=== PATIENT | female | born 1975 | race Caucasian/White ===

== ENCOUNTER 2017-01-28 08:26 | Emergency (ER) | payer MEDICAID ==
[~2017-01-28] VITALS: Ht 162.6 cm; Wt 104.3 kg
[~2017-01-28 08:26] MED LIST: AC500T PO; ACET15SO4 LEFT EAR; DCS100C PO; DIPH1TAB25 PO; DIPH50CA33 PO; HYDR-2890 PO; HYDR-34 PO; HYDR-623 PO; HYDR-757 PO; HYDR1TAB PO; IBP600T1 PO; IBP800T PO; LEVO88TA26; LOPE2CAP PO; LVT.025T PO; MTF500T PO; NITR-65; ONDA-42 PO; OXYC-12 PO; PREN-115 PO; PRM25T PO
--- OUTSIDE RECORDS SUMMARY | 2017-01-28 08:32 | XMS REPORT ---
Author Author LEWIS NAILS eClinicalWorks Address Unknown Phone Unavailable Care Team Providers Care Vegetable Grader Name Role Phone LEWIS NAILS CP Unavailable Allergies, Adverse Reactions, Alerts Substance Reaction Event Type N.K.D.A. Info Not Available Non Drug Allergy Problems Problem Type Condition Code Onset Dates Condition Status Assessment Acute bronchitis, unspecified organism J20.9 Active Medications Medication Code System Code Instructions Start Date End Date Status Dosage PredniSONE [facility] [address]-39 20 MG Orally Once a day Oct 01, 2016 Oct 06, 2016 2 tablet Azithromycin [facility] [address]-79 250 MG Orally Once a day Oct 01, 2016 Oct 06, 2016 2 tablets on the first day, then 1 tablet daily for 4 days Procedures Procedure Coding System Code Date Office Visit, Est Pt., Level 3 CPT-4 05437 Oct 01, 2016 Vital Signs Date/Time: Oct 01, 2016 Cardiac Monitoring Heart Rate 88 bpm Weight 218.4 lbs Height 64 in BMI 37.48 Index Blood Pressure Diastolic 76 mmHg Blood Pressure Systolic 110 mmHg Results No Known Results Summary Purpose eClinicalWorks Submission
[2017-01-28] MEDS ORDERED: CIPR-226 PO (08:47)
[2017-01-28 09:32] LABS: BILIRUBIN,URINE NEGATIVE (NEGATIVE); KETONES,URINE NEGATIVE (NEGATIVE); LEUKOCYTE ESTERASE ,URINE NEGATIVE (NEGATIVE); NITRITE,URINE NEGATIVE (NEGATIVE); PH,URINE 7 (5-9); PROTEIN,URINE NEGATIVE (NEGATIVE); UROBILINOGEN,URINE NORMAL (NORMAL)
[2017-01-28 09:40] LABS: WBC,URINE RARE /HPF
--- NOTE | 2017-01-28 10:12 | ED General ---
General Chief Complaint: Back Problems Stated Complaint: LEFT SIDED LOWER BACK PAIN Nursing Triage Note: c/o left lower back/flank pain. Onset 2 days ago. Pt was seen at [facility] walk-in on and prescribed Cipro for UTI. The dysuria symptoms have improved. Nursing Sepsis Screen: No Definite Risk Source of Information: Patient Exam Limitations: No Limitations History of Present Illness Time Seen by Provider: 10:09 Initial Comments With complaints of left lower back pain and flank pain. This began 2 days ago. She was seen at [facility] walk-in on Wednesday. She was given a prescription for Cipro. She reports that her dysuria has improved but she continues to have back pain. The pain that begins at about the level of the left costovertebral angle and radiates downward. It does increase with twisting and turning. She has no past history of back injury or pain. Her mother has had kidney stone. Timing/Duration: 2-3 Days Allergies and Home Medications Allergies Coded Allergies: iodine (Unverified Allergy, Severe, ANAPHYLAXIS, 09/02/10) SWELLING OF THROAT Home Medications Ciprofloxacin HCl 250 Mg Tablet 250 MG PO BID (Reported) Diphenhydramine Hcl 50 Mg Tablet 50 MG PO HS (Reported) Constitutional: see HPI EENTM: no symptoms reported Respiratory: no symptoms reported Cardiovascular: no symptoms reported Gastrointestinal: no symptoms reported Genitourinary: dysuria Musculoskeletal: back pain Skin: no symptoms reported Psychiatric/Neurological: No Symptoms Reported Hematologic/Lymphatic: No Symptoms Reported Immunological/Allergic: no symptoms reported Past Kmeevct-Oyyzyd-Qapjfj Hx Patient Social History Alcohol Use: Denies Use Recreational Drug Use: No Smoking Status: Never a Smoker Recent Foreign Travel: No Contact w/Someone Who Travel: No Recent Infectious Disease Expo: No Recent Hopitalizations: Yes (CHILD , APPY) Immunizations Up To Date Tetanus Booster (TDap): Less than 5yrs Date of Influenza Vaccine: Aug 22, 2013 Surgeries HX Surgeries: Yes Respiratory Hx Respiratory Disorders: No Cardiovascular Hx Cardiac Disorders: No Neurological Hx Neurological Disorders: No Reproductive System Hx Reproductive Disorders: Yes (ANEMIA FROM ABNORMAL UTERINE BLEEDING) Sexually Transmitted Disease: No HIV/AIDS: No Female Reproductive Disorders: Menstrual Problems Genitourinary Hx Genitourinary Disorders: No Genitourinary Disorders: Bladder Infection Gastrointestinal Hx Gastrointestinal Disorders: No Musculoskeletal Hx Musculoskeletal Disorders: No Endocrine Hx Endocrine Disorders: Yes Endocrine Disorders: Hypothyroidsim HEENT HX ENT Disorders: Yes (WEARS GLASSES) Loss of Vision: Bilateral Hearing Impairment: Denies Cancer Hx Cancer: No Psychosocial Hx Psychiatric Problems: No Integumentary HX Skin/Integumentary Disorder: Yes (RIGHT ARM) Skin/Integumentary Disorders: Eczema, Psoriasis Blood Transfusions Hx Blood Disorders: No Adverse Reaction to a Blood Tr: No (HAS HAD BLOOD TRANSFUSION WITH NO PROBLEMS) Family Medical History Significant Family History: Hypertension Family Medial History: Cataracts 19 MOTHER Congenital heart disease G8 SISTER (BOTH SISTERS HAVE MIRTAL VALVE PROLAPSE) Hypertension 19 FATHER Thyroid disease 19 MOTHER No Family History of: Coronary thrombosis Physical Exam Vital Signs Vital Sign - Last 12Hours 01/28/17 08:38 Temp 95.3 Pulse 83 Resp 16 B/P 177/110 Pulse Ox 98 O2 Delivery Room Air Capillary Refill : Less Than 3 Seconds General Appearance: Mild Distress Eyes: Bilateral Eye Normal Inspection HEENT: Normal ENT Inspection Neck: Full Range of Motion Normal Inspection Non Tender Supple Carotid Bruit Respiratory: Chest Non Tender Lungs Clear Normal Breath Sounds No Accessory Muscle Use No Respiratory Distress Cardiovascular: Regular Rate, Rhythm No Edema No Gallop No JVD No Murmur Normal Peripheral Pulses Gastrointestinal: Normal Bowel Sounds No Organomegaly Back: CVA Tenderness (L) Neurologic/Psychiatric: Alert Oriented x3 No Motor/Sensory Deficits Normal Mood/Affect Skin: Normal Color Warm/Dry Lymphatic: No Adenopathy Progress/Results/Core Measures Results/Orders Lab Results Laboratory Tests Test 01/28/17 08:55 Range/Units Urine Bacteria TRACE /HPF Urine Bilirubin NEGATIVE NEGATIVE Urine Casts NONE /LPF Urine Clarity CLEAR Urine Color YELLOW Urine Crystals NONE /LPF Urine Culture Indicated NO Urine Glucose (UA) NEGATIVE NEGATIVE Urine Ketones NEGATIVE NEGATIVE Urine Leukocyte Esterase NEGATIVE NEGATIVE Urine Mucus NEGATIVE /LPF Urine Nitrite NEGATIVE NEGATIVE Urine Protein NEGATIVE NEGATIVE Urine RBC RARE /HPF Urine RBC (Auto) NEGATIVE NEGATIVE Urine Specific [place] 1.010 L 1.016-1.022 Urine Squamous Epithelial Cells 2-5 /HPF Urine Urobilinogen NORMAL NORMAL MG/DL Urine WBC RARE /HPF Urine pH 7 5-9 My Orders Orders-SARAH RAI MD Ua Culture If Indicated (01/28/17 09:26) Ct Abd/Pelvis Wo(Kidney Stone) (01/28/17 10:08) Vital Signs/I&O Vital Sign - Last 12Hours 01/28/17 08:38 Temp 95.3 Pulse 83 Resp 16 B/P 177/110 Pulse Ox 98 O2 Delivery Room Air Blood Pressure Mean: 132 Departure Impression Impression: Primary Impression: right flank pain/acute UTI Disposition: HOME, SELF-CARE Condition: Stable/Unchanged Departure-Patient Inst. Decision time for Depature: 11:04 Referrals: NO,LOCAL PHYSICIAN (PCP) Primary Care Physician Add. Discharge Instructions: All discharge instructions reviewed with patient and/or family. Voiced understanding. Finish your antibiotics Try heat to the area Gentle stretching Pyridium as directed Scripts Phenazopyridine HCl (Pyridium)200 Mg Tablet1 Tab PO 3 times a day #10 TAB Prov:SARAH RAI MD 01/28/17 SARAH RAI MD Jan 28, 2017 10:12
--- NOTE | 2017-01-28 10:39 | Diagnostic Imaging Report ---
PROCEDURE: CT urinary tract, rule out kidney stone. TECHNIQUE: Multiple contiguous axial images were obtained through the abdomen and pelvis without the use of intravenous contrast. INDICATION: Left-sided lower back pain x2 days. History of urinary calculi. History of UTI. COMPARISON: 09/02/2010. FINDINGS: Included views of the lung bases are clear. CT abdomen: No renal or ureteral calculi are identified on either side. Additionally, there is no hydroureteronephrosis or other evidence of obstruction. No focal renal mass-type lesions are identified. Liver has a hypodense appearance consistent with underlying hepatic steatosis. Otherwise, the liver, spleen, pancreas, and adrenal glands have an unremarkable noncontrast CT appearance. Small bowel loops are nondistended. Normal appendix cannot be adequately identified, but there is no pericecal inflammation. There is no loculated fluid collection, free fluid, or free air within the abdomen. No abnormal mesenteric or retroperitoneal adenopathy is seen. Bony structures show no acute abnormalities. CT pelvis: Urinary bladder is unopacified. No calculi are seen within the urinary bladder. There is no loculated fluid collection, free fluid, or free air. No abnormal lymph nodes are seen. Bony structures show no acute abnormalities. IMPRESSION: 1. No renal or ureteral calculi or evidence of obstruction on either side. 2. Hepatic steatosis. Dictated by: Dictated on workstation # [id number]
[2017-01-28] MEDS ORDERED: PHEN-640 PO (11:06)
[2017-01-28 11:24] VITALS: BP 162/90
== END 2017-01-28 11:24 | disposition home or self-care (01) ==
LOC: EDUNIT# 08:26 → ER 08:28
DX: N39.0 Urinary tract infection, site not specified (principal); K76.0 Fatty (change of) liver, not elsewhere classified
CPT/HCPCS: 74176; 81000; 99282

== ENCOUNTER → 2017-03-15 | Outpatient (CLI) | payer MEDICAID ==
[~2017-03-15] MED LIST changes: +CIPR-226 PO; +PHEN-640 PO
--- NOTE | 2017-03-15 09:09 | Diagnostic Imaging Report ---
Bilateral diagnostic mammogram. CAD is utilized. The current study was also evaluated with a Computer Aided Detection (CAD) system. INDICATION: Bilateral breast lumps. No prior studies are available for comparison. Findings: The breasts are composed of scattered fibroglandular densities. There is a 1.3 cm lobulated mass at the medial aspect of the right breast corresponding to one of the palpable areas on the right side. There is no other mass, suspicious calcification or architectural distortion seen. Impression: There is a nonspecific lobulated mass measuring 1.3 CM in the medial aspect of the right breast, no other lesions identified. Ultrasound evaluation pending. BI-RADS 0. ACR BI-RADS Category 0: Incomplete. (Needs additional imaging evaluation). Result letter will be mailed to the patient. Note: At least 10% of breast cancer is not imaged by mammography. Dictated by: Dictated on workstation # [id number]
--- NOTE | 2017-03-15 10:16 | Diagnostic Imaging Report ---
EXAMINATION: Bilateral breast ultrasound. INDICATION: Palpable lumps in the left breast at the 9 o'clock zone and in the right breast at the 2, 3, and 4 o'clock zones. FINDINGS: In the right breast at 2 o'clock 7 cm from the nipple, there is a 0.6 x 0.3 x 0.8 cm hypoechoic circumscribed lesion that appears to be within the skin with no internal vascularity. It is probably a skin lesion such as a sebaceous cyst. Other palpable lesions in the right breast at the 3 and 4 o'clock zones were scanned with no underlying abnormality. Also, a palpable area in the left breast 9 o'clock zone was evaluated with no underlying abnormality. IMPRESSION: 1. At the 2 o'clock zone 7 cm from the nipple, there is a skin-based benign-appearing 8 mm hypoechoic lesion which may relate to a sebaceous cyst. Clinical followup is recommended. 2. Other palpable areas in the right breast at the 3 and 4 o'clock zones and in the left breast at the 9 o'clock zone are not associated with underlying abnormality. Clinical followup is recommended. ACR BI-RADS Category 1: Negative. Dictated by: Dictated on workstation # [id number]
== END ==
LOC: RAD 08:12
PROVIDERS: ATTEND Nurse Practitioner Family
DX: N63 Unspecified lump in breast (principal)
CPT/HCPCS: 76642; 77066

== ENCOUNTER 2017-10-14 11:30 | Observation (INO) | payer MEDICAID ==
[~2017-10-14] VITALS: Ht 162.6 cm; Wt 101.2 kg
[2017-10-14] MEDS ORDERED: LACTATED RINGERS 1,000 ML IV ONE (11:32)
[2017-10-14] MEDS ORDERED: ONDANSETRON 4 MG/2 ML (SDV) Z0FRAN IVP ONE (11:45)
[2017-10-14] MEDS ORDERED: PANTOPRAZOLE 40 MG/10 ML (PROTONIX) VIAL IV ONE (11:45)
[2017-10-14] MEDS ORDERED: HYOSCYAMINE 0.125 MG (LEVSIN) TAB SL ONE (11:45)
[2017-10-14 12:00] LABS: BASOPHILS % (AUTO) 0 % (0-10); EOSINOPHILS # (AUTO) 0.1 10^3/uL (0.0-0.3); EOSINOPHILS % (AUTO) 2 % (0-10); LYMPHOCYTES # (AUTO) 1.4 X 10^3 (1.0-4.0); LYMPHOCYTES % (AUTO) 17 % (12-44); MEAN CORPUSCULAR HEMOGLOBIN 30 PG (25-34); MEAN CORPUSCULAR HGB CONC 35 G/DL (32-36); MEAN CORPUSCULAR VOLUME 88 FL (80-99); MEAN PLATELET VOLUME 8.8 FL (7.4-10.4); MONOCYTES # (AUTO) 0.4 X 10^3 (0.0-1.0); MONOCYTES % (AUTO) 5 % (0-12); NEUTROPHILS # (AUTO) 6.3 X 10^3 (1.8-7.8); NEUTROPHILS % (AUTO) 76 % (42-75); PLATELET COUNT 337 10^3/uL (130-400); RED BLOOD COUNT 4.18 10^6/uL (4.35-5.85); RED CELL DISTRIBUTION WIDTH 12.3 % (10.0-14.5); WHITE BLOOD COUNT 8.3 10^3/uL (4.3-11.0)
[2017-10-14] MEDS ORDERED: NS 100 ML (IVPB) BAG IV ONE (12:30)
[2017-10-14] MEDS ORDERED: IOHEXOL 350 MG/ML 100 ML (OMNIPAQUE 350) VIAL IV ONE (12:30)
[2017-10-14 12:36] LABS: ALANINE AMINOTRANSFERASE 34 U/L (0-55); ALBUMIN 4.3 GM/DL (3.2-4.5); AMYLASE 183 U/L (25-125); ANION GAP 11 MMOL/L (5-14); ASPARTATE AMINO TRANSFERASE 49 U/L (5-34); BILIRUBIN,TOTAL 0.7 MG/DL (0.1-1.0); BLOOD UREA NITROGEN 6 MG/DL (7-18); BUN/CREATININE RATIO 7; CALCIUM 9.2 MG/DL (8.5-10.1); CARBON DIOXIDE 23 MMOL/L (21-32); CHLORIDE 107 MMOL/L (98-107); CREATININE SERUM 0.81 MG/DL (0.60-1.30); GFR ESTIMATED > 60; GLUCOSE 98 MG/DL (70-105); LIPASE 674 U/L (8-78); MAGNESIUM 1.9 MG/DL (1.8-2.4); POTASSIUM 3.7 MMOL/L (3.6-5.0); SODIUM 141 MMOL/L (135-145); TOTAL PROTEIN 7.3 GM/DL (6.4-8.2)
[2017-10-14 12:55] LABS: BILIRUBIN,URINE NEGATIVE (NEGATIVE); KETONES,URINE NEGATIVE (NEGATIVE); LEUKOCYTE ESTERASE ,URINE NEGATIVE (NEGATIVE); NITRITE,URINE NEGATIVE (NEGATIVE); PH,URINE 8 (5-9); PROTEIN,URINE NEGATIVE (NEGATIVE); UROBILINOGEN,URINE NORMAL (NORMAL)
--- NOTE | 2017-10-14 12:58 | Diagnostic Imaging Report ---
EXAMINATION: CT abdomen and pelvis without contrast dated 10/14/2017. TECHNIQUE: Multiple contiguous axial images were obtained through the abdomen and pelvis without the use of intravenous contrast. INDICATION: Epigastric pain, nausea, and vomiting for two days; shortness of air; increasing pain today. COMPARISON: Comparison made to 01/28/2017. FINDINGS: The nonopacified liver, spleen, and adrenal glands are unremarkable. There is evidence of previous cholecystectomy. Question mild fat stranding about the pancreatic head is noted which could be due to early findings of pancreatitis; correlate with laboratory values. Common duct is dilated, more so than on previous imaging. On prior CT, this was approximately 1 cm in thickness. This measures almost 1.5 cm today. Mild adjacent fat stranding noted. A distal obstructive process is not appreciated on this examination. There is no adjacent free air or free fluid. No lymphadenopathy is appreciated. Within the remaining abdomen and pelvis, the kidneys are unremarkable. No ureteral stone seen on either side. There are several slightly dilated small bowel loops in the left upper abdomen which appear nonspecific in nature. There is no free fluid in the pelvis. There is no inflammatory change about the visualized bowel loops. A small anterior abdominal wall hernia is noted which contains fat only. Osseous structures are unremarkable. The lung bases appear clear. IMPRESSION: 1. Mild fat stranding about the pancreatic head, suspicious for pancreatitis; correlate with symptoms and laboratory values. No adjacent fluid collections appreciated. 2. Common duct dilatation which has worsened since previous examination, and although some of this could be due to postoperative cholecystectomy changes, given the adjacent fat stranding at the pancreatic head, a distal obstructive process cannot be excluded on this examination and further imaging could further characterize as clinically warranted. Other incidental findings as discussed above. 3. Slightly prominent small bowel loops in the left upper quadrant. This is nonspecific. It could be due to a focal ileus versus a very early partial obstructive process, felt to be less likely but clinical followup is recommended. A focal enteritis could cause a similar appearance as well. Dictated by: Dictated on workstation # [id number]
[2017-10-14 13:08] LABS: SQUAMOUS EPITHELIAL CELL,UR 0-2 /HPF
--- NOTE | 2017-10-14 13:08 | Diagnostic Imaging Report ---
EXAM: Acute abdominal series at 12:57 p.m. INDICATION: Epigastric pain FINDINGS: The accompanying PA chest shows the heart size to be within normal limits. The lungs are clear. There is no is evidence for pneumonia or for a pleural effusion. There is no sign of a pneumoperitoneum either. Supine and erect views of the abdomen were obtained. There is a fair amount of gas in both the large and small bowel. This appearance is nonspecific. The amount of bowel gas has increased since the prior CT abdomen/pelvis exam of 01/28/2017. There is no clear evidence for a bowel obstruction. There is no mass or organomegaly appreciated. The osseous structures are intact. IMPRESSION: The bowel gas pattern is nonspecific. There is no acute abnormality identified. Dictated by: Dictated on workstation # [id number]
[2017-10-14] MEDS ORDERED: fentaNYL INJECTION 100 MCG/2 ML AMP IVP STA (13:29)
[2017-10-14] MEDS ORDERED: CATHETER FLUSH 10 ML SYR IV PRN (15:15)
[2017-10-14] MEDS ORDERED: ONDANSETRON 4 MG/2 ML (SDV) Z0FRAN IV PRN (15:15)
--- OUTSIDE RECORDS SUMMARY | 2017-10-14 15:16 | XMS REPORT ---
Author Author LEWIS NAILS eClinicalWorks Address Unknown Phone Unavailable Care Team Providers Care Drying Oven Tender Name Role Phone LEWIS NAILS CP Unavailable Allergies, Adverse Reactions, Alerts Substance Reaction Event Type N.K.D.A. Info Not Available Non Drug Allergy Problems Problem Type Condition Code Onset Dates Condition Status Assessment Acute bronchitis, unspecified organism J20.9 Active Medications Medication Code System Code Instructions Start Date End Date Status Dosage PredniSONE [facility] [address]-19 20 MG Orally Once a day Oct 01, 2016 Oct 06, 2016 2 tablet Azithromycin [facility] [address]-43 250 MG Orally Once a day Oct 01, 2016 Oct 06, 2016 2 tablets on the first day, then 1 tablet daily for 4 days Procedures Procedure Coding System Code Date Office Visit, Est Pt., Level 3 CPT-4 14225 Oct 01, 2016 Vital Signs Date/Time: Oct 01, 2016 Cardiac Monitoring Heart Rate 88 bpm Weight 218.4 lbs Height 64 in BMI 37.48 Index Blood Pressure Diastolic 76 mmHg Blood Pressure Systolic 110 mmHg Results No Known Results Summary Purpose eClinicalWorks Submission
--- OUTSIDE RECORDS SUMMARY | 2017-10-14 15:16 | XMS REPORT ---
Author Author JOLLY HENLEY Organization [facility] Address [address] [place] [address] Care Team Providers Care Food Production Manager Name Role Phone JOLLY HENLEY Unavailable PROBLEMS Type Condition ICD9-CM Code [id number] Code Onset Dates Condition Status SNOMED Code Problem Chronic tension-type headache, intractable G44.221 Active 898429544 Problem Restless leg syndrome G25.81 Active 11685209 Problem Screening cholesterol level Z13.220 Active 390692856 ALLERGIES No Known Allergies SOCIAL HISTORY Never Assessed PLAN OF CARE Activity Details Follow Up prn Reason: VITAL SIGNS Height 64 in 2017-01-26 Weight 235.6 lbs 2017-01-26 Temperature 97.1 degrees Fahrenheit 2017-01-26 Heart Rate 80 bpm 2017-01-26 Respiratory Rate 20 2017-01-26 BMI 40.44 kg/m2 2017-01-26 Blood pressure systolic 110 mmHg 2017-01-26 Blood pressure diastolic 70 mmHg 2017-01-26 MEDICATIONS Medication Instructions Dosage Frequency Start Date End Date Duration Status Benadryl Active Cipro 250 MG Orally every 12 hrs 1 tablet 12h Jan, Jan, 5 days Active RESULTS Name Result Date Reference Range UA LONG DIP (IN HOUSE) 2017-01-26 Lot # [id number] Exp date 2017-12-22 Clarity clear Color orange Odor noneq GLU trace NELLIE 1+ KET trace SG >-1.030 BLO negative pH 5.0 Protein 1+ URO 2.0 NIT positive REYNA negative Lot # [id number] Exp date 2017-12 CULTURE, URINE 2017-01-26 Urine Culture, Routine Final report Result 1 No growth PROCEDURES Procedure Date Ordered Result Body Site URINALYSIS, AUTO, W/O SCOPE January 26, 2017 URINE CULTURE/COLONY COUNT January 26, 2017 IMMUNIZATIONS No Known Immunizations MEDICAL (GENERAL) HISTORY Type Description Date Surgical History section Surgical History cholecystectomy 2009 Surgical History hysterectomy 2014 Surgical History carpal tunnel release 2016 Surgical History appendectomy Hospitalization History Surgery(s)/Childbirth(s) only
--- OUTSIDE RECORDS SUMMARY | 2017-10-14 15:16 | XMS REPORT ---
Author Author CAMERON JOSE Organization [facility] Address [address] [place] [address] Care Team Providers Care Publishing Editor Name Role Phone RED BARNESE Unavailable PROBLEMS Type Condition ICD9-CM Code JRS06-JX Code Onset Dates Condition Status SNOMED Code Problem Screening cholesterol level Z13.220 Active 316805977 Problem Acquired hypothyroidism E03.9 Active 023604042 Problem Arthritis M19.90 Active 2771240 Problem Chronic tension-type headache, intractable G44.221 Active 363370931 Problem Restless leg syndrome G25.81 Active 24154820 Problem Migraine with aura and without status migrainosus, not intractable G43.109 Active 7640378 Problem Mixed hyperlipidemia E78.2 Active 153581809 ALLERGIES Substance Reaction Event Type Date Status Iodine anaphylaxis Drug Allergy March, Active SOCIAL HISTORY Never Assessed PLAN OF CARE Activity Details Follow Up 2 Weeks Reason:Headaches VITAL SIGNS Height 64 in 2017-03-24 Weight 230 lbs 2017-03-24 Temperature 98.3 degrees Fahrenheit 2017-03-24 Heart Rate 78 bpm 2017-03-24 Respiratory Rate 18 2017-03-24 BMI 39.48 kg/m2 2017-03-24 Blood pressure systolic 106 mmHg 2017-03-24 Blood pressure diastolic 70 mmHg 2017-03-24 MEDICATIONS Medication Instructions Dosage Frequency Start Date End Date Duration Status Benadryl Active Topamax 25 MG Orally Once a day for 7 days then Twice a Day 1 tablet March, 30 day(s) Active Requip 2 MG Orally Once a day 1 tablet 1 to 3 hours before bedtime 24h March, 30 day(s) Active RESULTS No Results PROCEDURES Procedure Date Ordered Result Body Site LAB NOT BILLED BY [facility] March 24, 2017 VENIPUNCT, ROUTINE* March 24, 2017 IMMUNIZATIONS No Known Immunizations MEDICAL (GENERAL) HISTORY Type Description Date Medical History hyperlipidemia Medical History RLS Medical History Migraines Surgical History section Surgical History cholecystectomy 2010 Surgical History hysterectomy 2015 Surgical History carpal tunnel release 2016 Surgical History appendectomy Hospitalization History Surgery(s)/Childbirth(s) only
[2017-10-14] MEDS: D5 1/2 NS W/KCL 20 MEQ/L 1,000 ML IV SCH ×2 (15:21→20:52)
[2017-10-14] MEDS: fentaNYL INJECTION 100 MCG/2 ML AMP IV PRN ×3 (15:22→19:26)
[2017-10-14] MEDS ORDERED: INFLUENZA TRIvalent 2017-2018 0.5 ML/45 MCG SYR IM ONE (15:30)
[2017-10-14] MEDS ORDERED: LEVO100T7 PO (15:40)
[2017-10-14] MEDS ORDERED: ATOR10TA PO (15:41)
[2017-10-14 16:00] VITALS: BP 124/72
[2017-10-14 19:40] VITALS: BP 116/71
[2017-10-15] MEDS: fentaNYL INJECTION 100 MCG/2 ML AMP IV PRN (00:02)
[2017-10-15 00:44] VITALS: BP 114/67
[2017-10-15] MEDS: D5 1/2 NS W/KCL 20 MEQ/L 1,000 ML IV SCH ×2 (03:16→09:58)
[2017-10-15 04:46] VITALS: BP 122/67
[2017-10-15 06:20] LABS: BASOPHILS % (AUTO) 0 % (0-10); EOSINOPHILS # (AUTO) 0.1 10^3/uL (0.0-0.3); EOSINOPHILS % (AUTO) 2 % (0-10); LYMPHOCYTES # (AUTO) 0.8 X 10^3 (1.0-4.0); LYMPHOCYTES % (AUTO) 24 % (12-44); MEAN CORPUSCULAR HEMOGLOBIN 30 PG (25-34); MEAN CORPUSCULAR HGB CONC 34 G/DL (32-36); MEAN CORPUSCULAR VOLUME 89 FL (80-99); MEAN PLATELET VOLUME 8.9 FL (7.4-10.4); MONOCYTES # (AUTO) 0.3 X 10^3 (0.0-1.0); MONOCYTES % (AUTO) 10 % (0-12); NEUTROPHILS # (AUTO) 2.2 X 10^3 (1.8-7.8); NEUTROPHILS % (AUTO) 64 % (42-75); PLATELET COUNT 273 10^3/uL (130-400); RED BLOOD COUNT 3.72 10^6/uL (4.35-5.85); RED CELL DISTRIBUTION WIDTH 12.3 % (10.0-14.5); WHITE BLOOD COUNT 3.5 10^3/uL (4.3-11.0)
[2017-10-15 06:43] LABS: ALANINE AMINOTRANSFERASE 272 U/L (0-55); ALBUMIN 3.7 GM/DL (3.2-4.5); AMYLASE 134 U/L (25-125); ANION GAP 7 MMOL/L (5-14); ASPARTATE AMINO TRANSFERASE 231 U/L (5-34); BILIRUBIN,TOTAL 0.8 MG/DL (0.1-1.0); BLOOD UREA NITROGEN 4 MG/DL (7-18); BUN/CREATININE RATIO 5; CALCIUM 8.7 MG/DL (8.5-10.1); CARBON DIOXIDE 22 MMOL/L (21-32); CHLORIDE 110 MMOL/L (98-107); CREATININE SERUM 0.77 MG/DL (0.60-1.30); GFR ESTIMATED > 60; GLUCOSE 131 MG/DL (70-105); LIPASE 92 U/L (8-78); SODIUM 139 MMOL/L (135-145); TOTAL PROTEIN 6.4 GM/DL (6.4-8.2)
[2017-10-15 08:13] VITALS: BP 121/75
[2017-10-15] MEDS ORDERED: PANTOPRAZOLE 40 MG/10 ML (PROTONIX) VIAL IV SCH (09:00)
[2017-10-15] MEDS ORDERED: DIPH25TA31 PO (10:00)
--- NOTE | 2017-10-15 10:30 | Short Stay Summary ---
History of Present Illness History of Present Illness Reason for visit/HPI 42 yo woman presented to hospital on complaining of intense abdominal pain and nausea. Had not vomited. Her children had viral gastroenteritis the week prior, and she thought she had the same thing. Has no prior history of pancreatitis. No fever. States the pain was worse than she has ever experienced. Came to ER and was found to have acute pancreatitis. Pt has a history of high TGL and takes a statin for these. Drinks alcohol occasionally, not to excess. Had her gall bladder out a few years ago and has had no trouble since. Date of Admission Oct 14, 2017 at 1:30 pm Date of Discharge October 15, 2017 Time Seen by Provider: 09:00 Attending Physician Sriram Deng MD Admitting Physician Livia Dotson DO Consult Allergies and Home Medications Allergies Coded Allergies: iodine (Unverified Allergy, Severe, ANAPHYLAXIS, 09/02/10) SWELLING OF THROAT Home Medications Atorvastatin Calcium 10 Mg Tablet, 10 MG PO DAILY, (Reported) Diphenhydramine HCl 25 Mg Tablet, 75 MG PO HS, (Reported) TAKES 3 (25 MG) TABLETS Levothyroxine Sodium 100 Mcg Tablet, 100 MCG PO DAILY, (Reported) Past Somtfvh-[id number]-[id number] Hx Patient Social History Alcohol Use: Rarely Uses Number of Drinks Today: 0 Alcohol Beverage of Choice: Rum Recreational Drug Use: No Smoking Status: Never a Smoker 2nd Hand Smoke Exposure: No Physical Abuse Screen: No Sexual Abuse: No Recent Foreign Travel: No Contact w/other who traveled: No Recent Hopitalizations: No Recent Infectious Disease Expo: No Immunizations Up To Date Tetanus Booster (TDap): Less than 5yrs Date of Influenza Vaccine: Aug 22, 2013 Seasonal Allergies Seasonal Allergies: No Surgeries Yes (2 C-SECTIONS, T&A, APPY, CYSTS FROM ARMS, WISDON TEETH) Appendectomy, Section, Gallbladder, Hysterectomy Respiratory No Currently Using CPAP: No Currently Using BIPAP: No Cardiovascular Yes High Cholesterol Neurological Yes Reproductive System : No Hx Reproductive Disorders: Yes (ANEMIA FROM ABNORMAL UTERINE BLEEDING) Sexually Transmitted Disease: No HIV/AIDS: No Female Reproductive Disorders: Menstrual Problems 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 Genitourinary Yes Bladder Infection, UTI-Chronic Gastrointestinal Yes Ulcer Musculoskeletal No Endocrine History of Endocrine Disorders: Yes Endocrine Disorders: Hypothyroidsim HEENT History of HEENT Disorders: No Loss of Vision: Bilateral Hearing Impairment: Denies Cancer No Psychosocial History of Psychiatric Problem: No Integumentary History of Skin or Integumenta: Yes (RIGHT ARM) Skin/Integumentary Disorders: Eczema, Psoriasis Blood Transfusions History of Blood Disorders: No Adverse Reaction to a Blood Tr: No (HAS HAD BLOOD TRANSFUSION WITH NO PROBLEMS) Family Medical History Significant Family History: Hypertension Family Hx: Cataracts 19 MOTHER Congenital heart disease G8 SISTER (BOTH SISTERS HAVE MIRTAL VALVE PROLAPSE) Hypertension 19 FATHER Thyroid disease 19 MOTHER No Family History of: Coronary thrombosis Constitutional: no symptoms reported All Other Systems Reviewed Negative Unless Noted: Yes (Negative excepted noted.) Physical Exam Vital Signs Vital Sign - Last 12Hours 10/14/17 11:33 Temp 95.8 Pulse 84 Resp 22 B/P (MAP) 162/103 Pulse Ox 100 O2 Delivery Room Air Capillary Refill : Less Than 3 Seconds General Appearance: No Apparent Distress, WD/WN HEENT: PERRL/EOMI, Normal ENT Inspection, Pharynx Normal Neck: Full Range of Motion, Normal Inspection, Non Tender, Supple, Carotid Bruit Respiratory: Chest Non Tender, Lungs Clear, Normal Breath Sounds, No Accessory Muscle Use, No Respiratory Distress Cardiovascular: Regular Rate, Rhythm, No Edema, No Gallop, No JVD, No Murmur, Normal Peripheral Pulses Gastrointestinal: Normal Bowel Sounds, No Organomegaly, No Pulsatile Mass, Non Tender, Soft Back: Normal Inspection, No CVA Tenderness, No Vertebral Tenderness Extremity: Normal Capillary Refill, Normal Inspection, Normal Range of Motion, Non Tender, No Calf Tenderness, No Pedal Edema Neurologic/Psychiatric: Alert, Oriented x3, No Motor/Sensory Deficits, Normal 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, 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 Norm as Tested Skin: Normal Color, Warm/Dry Clinical Quality Measures DVT/VTE Risk/Contraindication: Risk Factor Score Per Nursin RFS Level Per Nursing on Admit: 3=High Short Stay Diagnosis Discharge Diagnosis-Short Stay Admission Diagnosis: ACUTE PANCREATITIS OBESITY BMI 38 Final Discharge Diagnosis: SAME Conclusion Labs Laboratory Tests 10/14/17 11:45: White Blood Count 8.3, Red Blood Count 4.18L, Hemoglobin 12.7, Hematocrit 37, Mean Corpuscular Volume 88, Mean Corpuscular Hemoglobin 30, Mean Corpuscular Hemoglobin Concent 35, Red Cell Distribution Width 12.3, Platelet Count 337, Mean Platelet Volume 8.8, Neutrophils (%) (Auto) 76H, Lymphocytes (%) (Auto) 17 , Monocytes (%) (Auto) 5, Eosinophils (%) (Auto) 2, Basophils (%) (Auto) 0, Neutrophils # (Auto) 6.3, Lymphocytes # (Auto) 1.4, Monocytes # (Auto) 0.4, Eosinophils # (Auto) 0.1, Basophils # (Auto) 0.0, Sodium Level 141, Potassium Level 3.7, Chloride Level 107, Carbon Dioxide Level 23, Anion Gap 11, Blood Urea Nitrogen 6L, Creatinine 0.81, Estimat Glomerular Filtration Rate > 60, BUN/ Creatinine Ratio 7, Glucose Level 98, Calcium Level 9.2, Magnesium Level 1.9, Total Bilirubin 0.7, Aspartate Amino Transf (AST/SGOT) 49H, Alanine Aminotransferase (ALT/SGPT) 34, Alkaline Phosphatase 64, Total Protein 7.3, Albumin 4.3, Amylase Level 183H, Lipase 674H 10/14/17 12:48: Urine Color YELLOW, Urine Clarity CLEAR, Urine pH 8, Urine Specific [place] 1.010L, Urine Protein NEGATIVE, Urine Glucose (UA) NEGATIVE, Urine Ketones NEGATIVE, Urine Nitrite NEGATIVE, Urine Bilirubin NEGATIVE, Urine Urobilinogen NORMAL, Urine Leukocyte Esterase NEGATIVE, Urine RBC (Auto) NEGATIVE, Urine RBC NONE, Urine WBC NONE, Urine Squamous Epithelial Cells 0-2, Urine Crystals NONE, Urine Bacteria TRACE, Urine Casts NONE, Urine Mucus NEGATIVE, Urine Culture Indicated NO, Urine Opiates Screen NEGATIVE, Urine Oxycodone Screen NEGATIVE, Urine Methadone Screen NEGATIVE, Urine Propoxyphene Screen NEGATIVE, Urine Barbiturates Screen NEGATIVE, Ur Tricyclic Antidepressants Screen NEGATIVE, Urine Phencyclidine Screen NEGATIVE, Urine Amphetamines Screen NEGATIVE, Urine Methamphetamines Screen NEGATIVE, Urine Benzodiazepines Screen NEGATIVE, Urine Cocaine Screen NEGATIVE, Urine Cannabinoids Screen NEGATIVE 10/15/17 06:06: White Blood Count 3.5L, Red Blood Count 3.72L, Hemoglobin 11.3L, Hematocrit 33L , Mean Corpuscular Volume 89, Mean Corpuscular Hemoglobin 30, Mean Corpuscular Hemoglobin Concent 34, Red Cell Distribution Width 12.3, Platelet Count 273, Mean Platelet Volume 8.9, Neutrophils (%) (Auto) 64, Lymphocytes (%) (Auto) 24, Monocytes (%) (Auto) 10, Eosinophils (%) (Auto) 2, Basophils (%) (Auto) 0, Neutrophils # (Auto) 2.2, Lymphocytes # (Auto) 0.8L, Monocytes # (Auto) 0.3, Eosinophils # (Auto) 0.1, Basophils # (Auto) 0.0, Sodium Level 139, Potassium Level 4.0, Chloride Level 110H, Carbon Dioxide Level 22, Anion Gap 7, Blood Urea Nitrogen 4L, Creatinine 0.77, Estimat Glomerular Filtration Rate > 60, BUN/ Creatinine Ratio 5, Glucose Level 131H, Calcium Level 8.7, Total Bilirubin 0.8, Aspartate Amino Transf (AST/SGOT) 231H, Alanine Aminotransferase (ALT/SGPT) 272H , Alkaline Phosphatase 121, Total Protein 6.4, Albumin 3.7, Amylase Level 134H, Lipase 92H Conclusion/Plan Patient was admitted for observation. She received IVF and bowel rest. She had improved markedly in clint following 24h and her lipase had decreased from > 600 to approximately 60. She had a trial of clear fluids and did well. Patient was cautioned to continue a clear liquid diet and progress to soft foods then a low fat diet. She will discuss with her PCP need for GI referral for retained stone and need for ERCP/MRCP. Patient was agreeable to discharge and to the follow up plan. Copy Copies To 1: SRIRAM DENG MD, JULIE A MD Oct 15, 2017 10:30 am
[2017-10-15] MEDS ORDERED: INFLUENZA TRIvalent 2017-2018 0.5 ML/45 MCG SYR IM ONE (12:25)
[2017-10-15 12:31] VITALS: BP 123/74
--- NOTE | 2017-10-15 13:13 | Discharge Instructions ---
Discharge [facility] Discharge Medications New, Converted or Re-Newed RX: Other Continued Medications: Atorvastatin Calcium (Lipitor) 10 Mg Tablet 10 MG PO DAILY, TAB Diphenhydramine HCl (Diphenhydramine HCl) 25 Mg Tablet 75 MG PO HS, TAB TAKES 3 (25 MG) TABLETS Levothyroxine Sodium (Levothyroxine Sodium) 100 Mcg Tablet 100 MCG PO DAILY, TAB Patient Instructions Goal/Follow Up Appt: YOU WILL SEE DR DENG ON NOVEMBER 01 AT 2PM TO TALK ABOUT THE PANCREATITIS. YOU WILL TRANSITION TO SEEING DR HOOKER ON NOVEMBER 16 AT 11AM. Patient Instructions: PLEASE EAT A LOW FAT, LOW CHOLESTEROL DIET. ADVANCE YOUR DIET SLOWLY FROM CLEARS, OR THE PANCREATITIS WILL RETURN. Return to The Hospital For: ABDOMINAL PAIN THAT IS SEVERE OR PROLONGED, VOMITING THAT WON'T STOP Activity & Diet Discharge Diet: Avoid Fatty Foods, Low Fat/Low Cholesterol Activity as Tolerated: Yes Copy Copies To 1: SRIRAM DENG MD, JULIE A MD Oct 15, 2017 1:13 pm
[2017-10-15 13:59] VITALS: BP 123/74
== END 2017-10-15 13:06 | disposition home or self-care (01) ==
LOC: EDUNIT# 11:30 → ER 11:31 → 4TH 13:30 → UNDOADMOB 13:30 → 4TH 14:36 → UNDODISOB 10-15 14:21
PROVIDERS: ADMIT Pediatrics; ATTEND Pediatrics
DX: K85.90 Acute pancreatitis without necrosis or infection, unspecified (principal); E78.00 Pure hypercholesterolemia, unspecified; E03.9 Hypothyroidism, unspecified; E66.9 Obesity, unspecified; Z68.38 Body mass index [BMI] 38.0-38.9, adult; Z23 Encounter for immunization
CPT/HCPCS: 36415; 74022; 74176; 80053; 80306; 81000; 82150; 83690; 83735; 85025; 93005; 93041; 96361; 96374; 96375; G0378

== ENCOUNTER → 2017-11-08 | Outpatient (CLI) | payer MEDICAID ==
[~2017-11-08] MED LIST changes: +ATOR10TA PO; +DIPH25TA31 PO; +LEVO100T7 PO
--- NOTE | 2017-11-08 09:34 | Diagnostic Imaging Report ---
PROCEDURE: US abdomen complete. TECHNIQUE: Multiple Real-time grayscale images were obtained over the abdomen in various projections. INDICATION: Idiopathic acute pancreatitis. FINDINGS: The pancreas is largely obscured. The liver is fairly homogeneous with no focal lesion seen. It is at the upper limits of normal in size measuring 18 cm craniocaudally. There is also increased echogenicity of the parenchyma which may relate to fatty infiltration or hepatitis. Hepatopetal flow in the portal vein is seen. The CBD is 8 mm in caliber, normal after cholecystectomy. The spleen is 11.9 cm in length, normal. The right kidney is 10.7 and the left kidney is 11.3 cm in length. No hydronephrosis or focal lesion. The abdominal aorta (visualized portion) appears unremarkable. The IVC appears unremarkable. No fluid collection or ascites is seen in the abdomen. IMPRESSION: Borderline liver size. The parenchyma is also hyperechoic which may relate to fatty infiltration or hepatitis. Dictated by: Dictated on workstation # [id number]
== END ==
LOC: RAD 06:57
PROVIDERS: ATTEND Pediatrics
DX: K85.00 Idiopathic acute pancreatitis without necrosis or infection (principal)
CPT/HCPCS: 76700

== ENCOUNTER 2017-11-29 07:17 | Observation (INO) | payer MEDICAID ==
[~2017-11-29] VITALS: Ht 162.6 cm; Wt 101.3 kg
[2017-11-29] MEDS ORDERED: LACTATED RINGERS 1,000 ML, LACTATED RINGERS 1,000 ML IV ONE (07:21)
--- OUTSIDE RECORDS SUMMARY | 2017-11-29 07:23 | XMS REPORT | Continuity of Care Document ---
Author Author [facility] Organization [facility] Address Unknown Phone Unavailable Allergies Active Description Code Type Severity Reaction Onset Reported/Identified Relationship to Patient Clinical Status Yes iodine [id number] Drug Allergy Severe ANAPHYLAXIS 09/02/2010 Medications There is no data. Problems Date Dx Coded Attending Type Code Diagnosis Diagnosed By 05/17/2015 JALEN DRAPER DO Ot 244.9 05/17/2015 JALEN DRAPER DO Ot 285.1 05/17/2015 JALEN DRAPER DO Ot 626.9 06/20/2015 JALEN DRAPER DO Ot 244.9 06/20/2015 JALEN DRAPER DO Ot 285.1 06/20/2015 JALEN DRAPER DO Ot 626.9 06/20/2015 JALEN DRAPER DO Ot 285.9 06/20/2015 JALEN DRAPER DO Ot 626.8 06/20/2015 JALEN DRAPER DO Ot V72.63 06/21/2015 JALEN DRAPER DO Ot 218.2 SUBSEROUS LEIOMYOMA 06/21/2015 JALEN DRAPER DO Ot 278.01 MORBID OBESITY 06/21/2015 JALEN DRAPER DO Ot 280.0 CHR BLOOD LOSS ANEMIA 06/21/2015 JALEN DRAPER DO Ot 568.0 PERITONEAL RTNHMPKNI-GCNM-RB/INF 06/21/2015 JALEN DRAPER DO Ot 614.6 FEM PELVIC PERITON ADH-POST-OP/INF 06/21/2015 JALEN DRAPER DO Ot 620.8 NONINFL DIS OVA/ADNX NEC 06/21/2015 JALEN DRAPER DO Ot 626.2 EXCESSIVE MENSTRUATION 06/21/2015 JALEN DRAPER DO Ot V85.39 BODY MASS INDEX 39.0-39.9, ADULT 06/26/2015 JALEN DRAPER DO Ot 285.9 06/26/2015 JALEN DRAPER DO Ot 626.8 06/26/2015 JALEN DRAPER DO Ot V72.63 12/19/2015 FENECH DO, JALEN S Ot 244.9 12/19/2015 FENECH DO, JALEN S Ot 285.1 12/19/2015 FENECH DO, JALEN S Ot 626.9 03/20/2016 FENECH DO, JALEN S Ot 244.9 HYPOTHYROIDISM NOS 03/20/2016 FENECH DO, JALEN S Ot 285.1 AC POSTHEMORRHAG ANEMIA 03/20/2016 FENECH DO, JALEN S Ot 626.9 MENSTRUAL DISORDER NOS 03/20/2016 FENECH DO, JALEN S Ot 285.9 ANEMIA NOS 03/20/2016 FENECH DO, JALEN S Ot 626.8 MENSTRUAL DISORDER NEC 03/20/2016 FENECH DO, JALEN S Ot V72.63 PRE-PROCEDURAL LABORATORY EXAMINATION 03/23/2016 MICHAEL COOPER MD Ot L40.50 ARTHROPATHIC PSORIASIS, UNSPECIFIED 03/25/2016 MICHAEL COOPER MD Ot E04.1 NONTOXIC SINGLE THYROID NODULE 03/25/2016 MICHAEL COOPER MD Ot L40.50 ARTHROPATHIC PSORIASIS, UNSPECIFIED 03/25/2016 MICHAEL COOPER MD Ot M25.50 PAIN IN UNSPECIFIED JOINT 03/25/2016 MICHAEL COOPER MD Ot Z00.00 ENCNTR FOR GENERAL ADULT MEDICAL EXAM W03/25/2016 MICHAEL COOPER MD Ot Z13.6 ENCOUNTER FOR SCREENING FOR CARDIOVASCUL 03/26/2016 MICHAEL COOPER MD Ot E04.1 NONTOXIC SINGLE THYROID NODULE 03/26/2016 MICHAEL COOPER MD Ot L40.50 ARTHROPATHIC PSORIASIS, UNSPECIFIED 03/26/2016 MICHAEL COOPER MD Ot M25.50 PAIN IN UNSPECIFIED JOINT 03/26/2016 MICHAEL COOPER MD Ot Z00.00 ENCNTR FOR GENERAL ADULT MEDICAL EXAM W03/26/2016 MICHAEL COOPER MD Ot Z13.6 ENCOUNTER FOR SCREENING FOR CARDIOVASCUL 04/01/2016 MICHAEL COOPER MD Ot L40.50 ARTHROPATHIC PSORIASIS, UNSPECIFIED 04/09/2016 MICHAEL COOPER MD Ot E04.1 NONTOXIC SINGLE THYROID NODULE 04/09/2016 MICHAEL COOPER MD Ot L40.50 ARTHROPATHIC PSORIASIS, UNSPECIFIED 04/09/2016 MICHAEL COOPER MD Ot M25.50 PAIN IN UNSPECIFIED JOINT 04/09/2016 MICHAEL COOPER MD Ot Z00.00 ENCNTR FOR GENERAL ADULT MEDICAL EXAM W04/09/2016 ALLISON GARCIA, MICHAEL Molina Ot Z13.6 ENCOUNTER FOR SCREENING FOR CARDIOVASCUL 01/28/2017 SARAH RAI MD Ot K76.0 FATTY (CHANGE OF) LIVER, NOT ELSEWHERE C 01/28/2017 SARAH RAI MD Ot M54.5 LOW BACK PAIN 01/28/2017 SARAH RAI MD Ot N39.0 URINARY TRACT INFECTION, SITE NOT SPECIF 01/28/2017 FENECH DO, JALEN S Ot 244.9 HYPOTHYROIDISM NOS 01/28/2017 FENECH DO, JALEN S Ot 285.1 AC POSTHEMORRHAG ANEMIA 01/28/2017 FENECH DO, JALEN S Ot 626.9 MENSTRUAL DISORDER NOS 01/28/2017 FENECH DO, JALEN S Ot 285.9 ANEMIA NOS 01/28/2017 FENECH DO, JALEN S Ot 626.8 MENSTRUAL DISORDER NEC 01/28/2017 FENECH DO, JALEN S Ot V72.63 PRE-PROCEDURAL LABORATORY EXAMINATION 01/28/2017 MICHAEL COOPER MD Ot L40.50 ARTHROPATHIC PSORIASIS, UNSPECIFIED 01/28/2017 MICHAEL COOPER MD Ot E04.1 NONTOXIC SINGLE THYROID NODULE 01/28/2017 MICHAEL COOPER MD Ot L40.50 ARTHROPATHIC PSORIASIS, UNSPECIFIED 01/28/2017 MICHAEL COOPER MD Ot M25.50 PAIN IN UNSPECIFIED JOINT 01/28/2017 ALLISON GARCIA, MICHAEL Molina Ot Z00.00 ENCNTR FOR GENERAL ADULT MEDICAL EXAM W01/28/2017 MICHAEL COOPER MD Ot Z13.6 ENCOUNTER FOR SCREENING FOR CARDIOVASCUL 01/29/2017 SARAH RAI MD Ot K76.0 FATTY (CHANGE OF) LIVER, NOT ELSEWHERE C 01/29/2017 SARAH RAI MD Ot M54.5 LOW BACK PAIN 01/29/2017 SARAH RAI MD Ot N39.0 URINARY TRACT INFECTION, SITE NOT SPECIF 01/30/2017 SARAH RAI MD Ot K76.0 FATTY (CHANGE OF) LIVER, NOT ELSEWHERE C 01/30/2017 SARAH RAI MD Ot M54.5 LOW BACK PAIN 01/30/2017 SARAH RAI MD Ot N39.0 URINARY TRACT INFECTION, SITE NOT SPECIF 03/21/2017 GLORIA, SHANNAN L COMPLAINT COORDINATOR Ot N63 UNSPECIFIED LUMP IN BREAST 04/05/2017 SHANNAN CASTRO COMPLAINT COORDINATOR Ot N63 UNSPECIFIED LUMP IN BREAST 10/15/2017 SRIRAM PEREZ MD, Ot E03.9 HYPOTHYROIDISM, UNSPECIFIED 10/15/2017 SRIRAM PEREZ MD, Ot E66.9 OBESITY, UNSPECIFIED 10/15/2017 SRIRAM PEREZ MD, Ot E78.00 PURE HYPERCHOLESTEROLEMIA, UNSPECIFIED 10/15/2017 SRIRAM PEREZ MD, Ot K85.90 ACUTE PANCREATITIS WITHOUT NECROSIS OR I 10/15/2017 SRIRAM PEREZ MD Ot Z23 ENCOUNTER FOR IMMUNIZATION 10/15/2017 SRIRAM PEREZ MD, Ot Z68.38 BODY MASS INDEX (BMI) 38.0-38.9, ADULT Procedures There is no data. Results Test Result Range Complete urinalysis with reflex to culture - 01/28/17 08:55 Urine color determination YELLOW NRG Urine clarity determination CLEAR NRG Urine pH measurement by test strip 7 5-9 Specific gravity of urine by test strip 1.010 1.016- 1.022 Urine protein assay by test strip, semi-quantitative NEGATIVE NEGATIVE Urine glucose detection by automated test strip NEGATIVE NEGATIVE Erythrocytes detection in urine sediment by light microscopy NEGATIVE NEGATIVE Urine ketones detection by automated test strip NEGATIVE NEGATIVE Urine nitrite detection by test strip NEGATIVE NEGATIVE Urine total bilirubin detection by test strip NEGATIVE NEGATIVE Urine urobilinogen measurement by automated test strip (mass/volume) NORMAL NORMAL Urine leukocyte esterase detection by dipstick NEGATIVE NEGATIVE Automated urine sediment erythrocyte count by microscopy (number/high power field) RARE NRG Automated urine sediment leukocyte count by microscopy (number/high power field ) RARE NRG Bacteria detection in urine sediment by light microscopy TRACE NRG Squamous epithelial cells detection in urine sediment by light microscopy 2-5 NRG Crystals detection in urine sediment by light microscopy NONE NRG Casts detection in urine sediment by light microscopy NONE NRG Mucus detection in urine sediment by light microscopy NEGATIVE NRG Complete urinalysis with reflex to culture NO NRG Complete blood count (CBC) with automated white blood cell (WBC) differential - 10/14/17 11:45 Blood leukocytes automated count (number/volume) 8.3 10*3/uL 4.3-11.0 Blood erythrocytes automated count (number/volume) 4.18 10*6/uL 4.35-5.85 Venous blood hemoglobin measurement (mass/volume) 12.7 g/dL 11.5-16.0 Blood hematocrit (volume fraction) 37 % 35-52 Automated erythrocyte mean corpuscular volume 88 [foz_us] 80-99 Automated erythrocyte mean corpuscular hemoglobin (mass per erythrocyte) 30 pg 25-34 Automated erythrocyte mean corpuscular hemoglobin concentration measurement ( mass/volume) 35 g/dL 32-36 Automated erythrocyte distribution width ratio 12.3 % 10.0-14.5 Automated blood platelet count (count/volume) 337 10*3/uL 130-400 Automated blood platelet mean volume measurement 8.8 [foz_us] 7.4-10.4 Automated blood neutrophils/100 leukocytes 76 % 42-75 Automated blood lymphocytes/100 leukocytes 17 % 12-44 Blood monocytes/100 leukocytes 5 % 0-12 Automated blood eosinophils/100 leukocytes 2 % 0-10 Automated blood basophils/100 leukocytes 0 % 0-10 Blood neutrophils automated count (number/volume) 6.3 10*3 1.8-7.8 Blood lymphocytes automated count (number/volume) 1.4 10*3 1.0-4.0 Blood monocytes automated count (number/volume) 0.4 10*3 0.0-1.0 Automated eosinophil count 0.1 10*3/uL 0.0-0.3 Automated blood basophil count (count/volume) 0.0 10*3/uL 0.0-0.1 Comprehensive metabolic panel - 10/14/17 11:45 Serum or plasma sodium measurement (moles/volume) 141 mmol/L 135-145 Serum or plasma potassium measurement (moles/volume) 3.7 mmol/L 3.6-5.0 Serum or plasma chloride measurement (moles/volume) 107 mmol/L 98-107 Carbon dioxide 23 mmol/L 21-32 Serum or plasma anion gap determination (moles/volume) 11 mmol/L 5-14 Serum or plasma urea nitrogen measurement (mass/volume) 6 mg/dL 7-18 Serum or plasma creatinine measurement (mass/volume) 0.81 mg/dL 0.60-1.30 Serum or plasma urea nitrogen/creatinine mass ratio 7 NRG Serum or plasma creatinine measurement with calculation of estimated glomerular filtration rate > NRG Serum or plasma glucose measurement (mass/volume) 98 mg/dL 70-105 Serum or plasma calcium measurement (mass/volume) 9.2 mg/dL 8.5-10.1 Serum or plasma total bilirubin measurement (mass/volume) 0.7 mg/dL 0.1-1.0 Serum or plasma alkaline phosphatase measurement (enzymatic activity/volume) 64 U/L 40-136 Serum or plasma aspartate aminotransferase measurement (enzymatic activity/ volume) 49 U/L 5-34 Serum or plasma alanine aminotransferase measurement (enzymatic activity/volume ) 34 U/L 0-55 Serum or plasma protein measurement (mass/volume) 7.3 g/dL 6.4-8.2 Serum or plasma albumin measurement (mass/volume) 4.3 g/dL 3.2-4.5 Magnesium - 10/14/17 11:45 Magnesium 1.9 mg/dL 1.8-2.4 Serum or plasma amylase measurement (enzymatic activity/volume) - 10/14/17 11: 45 Serum or plasma amylase measurement (enzymatic activity/volume) 183 U/L 25-125 Lipase - 10/14/17 11:45 Lipase 674 U/L 8-78 Complete urinalysis with reflex to culture - 10/14/17 12:48 Urine color determination YELLOW NRG Urine clarity determination CLEAR NRG Urine pH measurement by test strip 8 5-9 Specific gravity of urine by test strip 1.010 1.016- 1.022 Urine protein assay by test strip, semi-quantitative NEGATIVE NEGATIVE Urine glucose detection by automated test strip NEGATIVE NEGATIVE Erythrocytes detection in urine sediment by light microscopy NEGATIVE NEGATIVE Urine ketones detection by automated test strip NEGATIVE NEGATIVE Urine nitrite detection by test strip NEGATIVE NEGATIVE Urine total bilirubin detection by test strip NEGATIVE NEGATIVE Urine urobilinogen measurement by automated test strip (mass/volume) NORMAL NORMAL Urine leukocyte esterase detection by dipstick NEGATIVE NEGATIVE Automated urine sediment erythrocyte count by microscopy (number/high power field) NONE NRG Automated urine sediment leukocyte count by microscopy (number/high power field ) NONE NRG Bacteria detection in urine sediment by light microscopy TRACE NRG Squamous epithelial cells detection in urine sediment by light microscopy 0-2 NRG Crystals detection in urine sediment by light microscopy NONE NRG Casts detection in urine sediment by light microscopy NONE NRG Mucus detection in urine sediment by light microscopy NEGATIVE NRG Complete urinalysis with reflex to culture NO NRG Urine drug screening test - 10/14/17 12:48 Urine phencyclidine detection by screening method NEGATIVE NEGATIVE Urine benzodiazepines detection by screening method NEGATIVE NEGATIVE Urine cocaine detection NEGATIVE NEGATIVE Urine amphetamines detection by screening method NEGATIVE NEGATIVE Urine methamphetamine detection by screening method NEGATIVE NEGATIVE Urine cannabinoids detection by screening method NEGATIVE NEGATIVE Urine opiates detection by screening method NEGATIVE NEGATIVE Urine barbiturates detection NEGATIVE NEGATIVE Screening urine tricyclic antidepressants detection NEGATIVE NEGATIVE Urine methadone detection by screening method NEGATIVE NEGATIVE Urine oxycodone detection NEGATIVE NEGATIVE Urine propoxyphene detection NEGATIVE NEGATIVE Complete blood count (CBC) with automated white blood cell (WBC) differential - 10/15/17 06:06 Blood leukocytes automated count (number/volume) 3.5 10*3/uL 4.3-11.0 Blood erythrocytes automated count (number/volume) 3.72 10*6/uL 4.35-5.85 Venous blood hemoglobin measurement (mass/volume) 11.3 g/dL 11.5-16.0 Blood hematocrit (volume fraction) 33 % 35-52 Automated erythrocyte mean corpuscular volume 89 [foz_us] 80-99 Automated erythrocyte mean corpuscular hemoglobin (mass per erythrocyte) 30 pg 25-34 Automated erythrocyte mean corpuscular hemoglobin concentration measurement ( mass/volume) 34 g/dL 32-36 Automated erythrocyte distribution width ratio 12.3 % 10.0-14.5 Automated blood platelet count (count/volume) 273 10*3/uL 130-400 Automated blood platelet mean volume measurement 8.9 [foz_us] 7.4-10.4 Automated blood neutrophils/100 leukocytes 64 % 42-75 Automated blood lymphocytes/100 leukocytes 24 % 12-44 Blood monocytes/100 leukocytes 10 % 0-12 Automated blood eosinophils/100 leukocytes 2 % 0-10 Automated blood basophils/100 leukocytes 0 % 0-10 Blood neutrophils automated count (number/volume) 2.2 10*3 1.8-7.8 Blood lymphocytes automated count (number/volume) 0.8 10*3 1.0-4.0 Blood monocytes automated count (number/volume) 0.3 10*3 0.0-1.0 Automated eosinophil count 0.1 10*3/uL 0.0-0.3 Automated blood basophil count (count/volume) 0.0 10*3/uL 0.0-0.1 Comprehensive metabolic panel - 10/15/17 06:06 Serum or plasma sodium measurement (moles/volume) 139 mmol/L 135-145 Serum or plasma potassium measurement (moles/volume) 4.0 mmol/L 3.6-5.0 Serum or plasma chloride measurement (moles/volume) 110 mmol/L 98-107 Carbon dioxide 22 mmol/L 21-32 Serum or plasma anion gap determination (moles/volume) 7 mmol/L 5-14 Serum or plasma urea nitrogen measurement (mass/volume) 4 mg/dL 7-18 Serum or plasma creatinine measurement (mass/volume) 0.77 mg/dL 0.60-1.30 Serum or plasma urea nitrogen/creatinine mass ratio 5 NRG Serum or plasma creatinine measurement with calculation of estimated glomerular filtration rate > NRG Serum or plasma glucose measurement (mass/volume) 131 mg/dL 70-105 Serum or plasma calcium measurement (mass/volume) 8.7 mg/dL 8.5-10.1 Serum or plasma total bilirubin measurement (mass/volume) 0.8 mg/dL 0.1-1.0 Serum or plasma alkaline phosphatase measurement (enzymatic activity/volume) 121 U/L 40-136 Serum or plasma aspartate aminotransferase measurement (enzymatic activity/ volume) 231 U/L 5-34 Serum or plasma alanine aminotransferase measurement (enzymatic activity/volume ) 272 U/L 0-55 Serum or plasma protein measurement (mass/volume) 6.4 g/dL 6.4-8.2 Serum or plasma albumin measurement (mass/volume) 3.7 g/dL 3.2-4.5 Serum or plasma amylase measurement (enzymatic activity/volume) - 10/15/17 06: 06 Serum or plasma amylase measurement (enzymatic activity/volume) 134 U/L 25-125 Lipase - 10/15/17 06:06 Lipase 92 U/L 8-78 Encounters ACCT No. Visit Date/Time Discharge Status Pt. Type Provider Facility Loc./Unit Complaint [id number] 11/08/2017 06:57:00 11/08/2017 23:59:59 CLS Outpatient SRIRAM PEREZ MD [facility] RAD K85.00 IDIOPATHIC ACUTE PANCREATITIS W/O INFECTION [id number] 10/14/2017 13:30:00 10/15/2017 14:21:00 DIS Inpatient SRIRAM PEREZ MD [facility] 4TH PANCREATITIS [id number] 03/15/2017 08:12:00 03/15/2017 23:59:59 CLS Outpatient SHANNAN CASTRO [facility] RAD N63 [id number] 01/28/2017 08:28:00 01/28/2017 11:24:00 DIS Emergency SARAH RAI MD [facility] ER LEFT SIDED LOWER BACK PAIN [id number] 03/23/2016 07:56:00 03/23/2016 23:59:59 CLS Outpatient MICHAEL COOPER MD [facility] LAB JOINT PAIN,PSORIASIS ARTHRITIS [id number] 03/20/2016 12:34:00 03/20/2016 23:59:59 CLS Outpatient MICHAEL COOPER MD [facility] RAD HAND WRIST PAIN, PSORIATIC ARTHRITIS [id number] 06/20/2015 06:00:00 06/21/2015 11:05:00 DIS Outpatient JALEN DRAPER DO [facility] SDC ABNORMAL UTERINE BLEEDING; ANEMIA [id number] 06/11/2015 13:06:00 06/11/2015 23:59:59 CLS Outpatient JALEN DRAPER DO [facility] PREOP ABNORMAL UTERINE BLEEDING; ANEMIA [id number] 04/24/2015 10:49:00 04/24/2015 23:59:59 CLS Outpatient JALEN DRAPER DO [facility] RAD PELVIC PAIN, [id number] 03/20/2014 10:30:00 03/20/2014 23:59:59 CLS Outpatient [id number] 08/21/2013 18:13:00 08/22/2013 11:35:00 DIS Inpatient [id number] 08/12/2013 22:02:00 08/13/2013 06:35:00 DIS Outpatient [id number] 05/30/2013 09:52:00 05/30/2013 15:20:00 DIS Outpatient [id number] 03/29/2013 16:10:00 03/29/2013 18:05:00 DIS Emergency
[2017-11-29] MEDS ORDERED: LACTATED RINGERS 1,000 ML IV ONE ×2 (07:29→08:06)
[2017-11-29] MEDS ORDERED: ONDANSETRON 4 MG/2 ML (SDV) Z0FRAN IVP ONE (07:30)
[2017-11-29] MEDS ORDERED: fentaNYL INJECTION 100 MCG/2 ML AMP IVP ONE ×3 (07:30→09:30)
--- NOTE | 2017-11-29 07:30 | ED Abdominal Pain ---
General Stated Complaint: ABD PAIN Source of Information: Patient, Family (mom) Exam Limitations: No Limitations History of Present Illness Time Seen By Provider: 07:18 Initial Comments Patient resists ER by private conveyance with a chief complaint that last night she started having some abdominal pain nausea vomiting without blood in it as well as some loose foul Smelling stools that were different colored and light lonely in appearance. No blood in the stool or vomitus. Patient says this epigastric pain is reminiscent of her pain from September when she was diagnosed with pink otitis. She denies using alcohol that she does take a statin for hypercholesterolemia. She is on no her last triglyceride was. She denies any recent trauma. She has had 3 C-sections, hysterectomy, gallbladder and appendix removed. Patient's pain is rated 11 out of 10 epigastric. Worse with movement. Better with lying still. Allergies and Home Medications Allergies Coded Allergies: iodine (Unverified Allergy, Severe, ANAPHYLAXIS, 09/02/10) SWELLING OF THROAT Home Medications Atorvastatin Calcium 10 Mg Tablet, 10 MG PO DAILY, (Reported) Diphenhydramine HCl 25 Mg Tablet, 75 MG PO HS, (Reported) TAKES 3 (25 MG) TABLETS Levothyroxine Sodium 100 Mcg Tablet, 100 MCG PO DAILY, (Reported) Review of Systems Constitutional: No chills, No diaphoresis, No fever, No malaise EENTM: No Eye Pain, No Ear Pain Respiratory: Denies Cough, Denies Shortness of Air Cardiovascular: Denies Chest Pain, Denies Syncope Gastrointestinal: See HPI, Denies Abdomen Distended, Abdominal Pain, Denies Constipated, Diarrhea, Nausea, Poor Fluid Intake, Vomiting Genitourinary: Denies Burning, Denies Discharge Musculoskeletal: No back pain, No joint pain Skin: No pruritus, No rash Psychiatric/Neurological: Denies Headache, Denies Numbness Past Xmhtvyf-Zmclcn-Soiqay Hx Patient Social History Alcohol Use: Past History Alcohol Beverage of Choice: Rum Recreational Drug Use: No Smoking Status: Never a Smoker 2nd Hand Smoke Exposure: No Recent Hopitalizations: No Immunizations Up To Date Tetanus Booster (TDap): Less than 5yrs Date of Influenza Vaccine: Aug 22, 2013 Seasonal Allergies Seasonal Allergies: No Surgeries History of Surgeries: Yes (2 C-SECTIONS, T&A, APPY, CYSTS FROM ARMS, WISDOM TEETH;HYST/OVARIES INTACT) Surgeries: Adenoidectomy, Appendectomy, Section, Gallbladder, Hysterectomy, Tonsillectomy Respiratory History of Respiratory Disorde: No Currently Using CPAP: No Currently Using BIPAP: No Cardiovascular History of Cardiac Disorders: Yes Cardiac Disorders: High Cholesterol Neurological History of Neurological Disord: No Reproductive System Hx Reproductive Disorders: Yes (ANEMIA FROM ABNORMAL UTERINE BLEEDING) Sexually Transmitted Disease: No HIV/AIDS: No Female Reproductive Disorders: 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 Genitourinary History of Genitourinary Disor: Yes Genitourinary Disorders: Bladder Infection, UTI-Chronic Gastrointestinal History of Gastrointestinal Di: Yes Gastrointestinal Disorders: Ulcer Musculoskeletal History of Musculoskeletal Dis: No Endocrine History of Endocrine Disorders: Yes Endocrine Disorders: Hypothyroidsim HEENT History of HEENT Disorders: No Loss of Vision: Bilateral Hearing Impairment: Denies Cancer History of Cancer: No Psychosocial History of Psychiatric Problem: No Integumentary History of Skin or Integumenta: Yes (RIGHT ARM) Skin/Integumentary Disorders: Eczema, Psoriasis Blood Transfusions History of Blood Disorders: No Adverse Reaction to a Blood Tr: No (HAS HAD BLOOD TRANSFUSION WITH NO PROBLEMS) Family Medical History Significant Family History: Hypertension Family Medial History: Cataracts 19 MOTHER Congenital heart disease G8 SISTER (BOTH SISTERS HAVE MIRTAL VALVE PROLAPSE) Hypertension 19 FATHER Thyroid disease 19 MOTHER No Family History of: Coronary thrombosis Physical Exam Vital Signs VS - Last 72 Hours, by Label 11/29/17 07:17 Temp 97.8 Pulse 97 Resp 22 B/P (MAP) 129/71 (90) Pulse Ox 100 O2 Delivery Room Air Capillary Refill : General Appearance: moderate distress (hyperventilating short shallow breaths secondary to pain on deep inspiration), obese HEENT: PERRL/EOMI, pharynx normal (oral mucosa is mildly dry.) Neck: non-tender, normal inspection Respiratory: chest non-tender, lungs clear, normal breath sounds, no respiratory distress (taking shallow breaths), no accessory muscle use Cardiovascular: normal peripheral pulses, regular rate, rhythm, no edema Peripheral Pulses: 2+ Radial Pulses (R), 2+ Radial Pulses (L) Gastrointestinal: normal bowel sounds, soft, tenderness (diffusely but especially in the epigastric region), other (negative for mesenteric signs) Back: normal inspection, no CVA tenderness Neurologic/Psychiatric: alert, oriented x 3 Skin: normal color, warm/dry Lymphatic: no adenopathy Focused Exam Evaluation Lactate Level Laboratory Tests 11/29/17 07:39: Lactic Acid Level 1.66 Lactic Acid Level Laboratory Tests Test 11/29/17 07:39 Lactic Acid Level 1.66 MMOL/L (0.50-2.00) Progress/Results/Core Measures Results/Orders Lab Results Laboratory Tests Test 11/29/17 07:25 11/29/17 07:39 Range/Units White Blood Count 6.6 4.3-11.0 10^3/uL Red Blood Count 4.30 L 4.35-5.85 10^6/uL Hemoglobin 12.9 11.5-16.0 G/DL Mean Corpuscular Hemoglobin 30 25-34 PG Red Cell Distribution Width 12.6 10.0-14.5 % Platelet Count 330 130-400 10^3/uL Mean Platelet Volume 8.0 7.4-10.4 FL Neutrophils (%) (Auto) 85 H 42-75 % Lymphocytes (%) (Auto) 10 L 12-44 % Monocytes (%) (Auto) 4 0-12 % Eosinophils (%) (Auto) 1 0-10 % Basophils (%) (Auto) 0 0-10 % Neutrophils # (Auto) 5.6 1.8-7.8 X 10^3 Lymphocytes # (Auto) 0.7 L 1.0-4.0 X 10^3 Monocytes # (Auto) 0.3 0.0-1.0 X 10^3 Eosinophils # (Auto) 0.0 0.0-0.3 10^3/uL Basophils # (Auto) 0.0 0.0-0.1 10^3/uL Sodium Level 136 135-145 MMOL/L Potassium Level 3.5 L 3.6-5.0 MMOL/L Chloride Level 102 98-107 MMOL/L Carbon Dioxide Level 19 L 21-32 MMOL/L Anion Gap 15 H 5-14 MMOL/L Blood Urea Nitrogen 9 7-18 MG/DL Creatinine 0.85 0.60-1.30 MG/DL Estimat Glomerular Filtration Rate > 60 BUN/Creatinine Ratio 11 Glucose Level 110 H 70-105 MG/DL Calcium Level 10.1 8.5-10.1 MG/DL Phosphorus Level 2.1 L 2.3-4.7 MG/DL Magnesium Level 1.5 L 1.8-2.4 MG/DL Total Bilirubin 1.1 H 0.1-1.0 MG/DL Aspartate Amino Transf (AST/SGOT) 39 H 5-34 U/L Alanine Aminotransferase (ALT/SGPT) 40 0-55 U/L Alkaline Phosphatase 61 40-136 U/L Total Protein 7.4 6.4-8.2 GM/DL Albumin 4.3 3.2-4.5 GM/DL Triglycerides Level 153 H <150 MG/DL Lipase 81 H 8-78 U/L Lactic Acid Level 1.66 0.50-2.00 MMOL/L My Orders Orders - CARYL KABA Cbc With Automated Diff (11/29/17 07:21) Comprehensive Metabolic Panel (11/29/17 07:21) Lactic Acid Analyzer (11/29/17 07:21) Lipase (11/29/17 07:21) Magnesium (11/29/17 07:21) Ua Culture If Indicated (11/29/17 07:21) Phosphorus (11/29/17 07:21) Saline Lock/Iv-Start (11/29/17 07:21) Lactated Ringers (Lr 1000 Ml Iv Solution (11/29/17 07:21) Fentanyl Injection (Sublimaze Injection (11/29/17 07:30) Ondansetron Injection (Zofran Injectio (11/29/17 07:30) Lactated Ringers (Lr 1000 Ml Iv Solution (11/29/17 07:29) Chest 1 View, Ap/Pa Only (11/29/17 07:33) Triglycerides (11/29/17 07:33) Fentanyl Injection (Sublimaze Injection (11/29/17 08:15) Lactated Ringers (Lr 1000 Ml Iv Solution (11/29/17 08:06) Medications Given in ED Current Medications Medications Dose Ordered Sig/Wiley Route Start Time Stop Time Status Last Admin Dose Admin Fentanyl Citrate 100 mcg ONCE ONCE IVP 11/29/17 07:30 11/29/17 07:31 DC 11/29/17 07:36 100 MCG Fentanyl Citrate 100 mcg ONCE ONCE IVP 11/29/17 08:15 11/29/17 08:16 DC 11/29/17 08:06 100 MCG Lactated Ringer's/ Lactated Ringer's 2,000 ml @ 0 mls/hr Q0M ONCE IV 11/29/17 07:21 1/8/18 07:26 DC 11/29/17 07:36 1,000 MLS/HR Ondansetron HCl 4 mg ONCE ONCE IVP 11/29/17 07:30 11/29/17 07:31 DC 11/29/17 07:34 4 MG Vital Signs/I&O Vital Sign - Last 12Hours 11/29/17 07:17 Temp 97.8 Pulse 97 Resp 22 B/P (MAP) 129/71 (90) Pulse Ox 100 O2 Delivery Room Air Progress Note #1: Time: 07:32 Progress Note Pancreatitis is likely since she has a recent history of a we'll check triglycerides give her copious fluids and pain medicine and nausea medicine and check a lipase before committing to doing a scan if the diagnosis is unclear based on laboratory evidence. Progress Note #2: Time: 08:16 Progress Note After the initial bolus of pain medicine the patient's pain came down to a 4 out of 10 but then when she had to move to sit up for the chest x-ray she says her pain got worse and went back up to 7 out of 10. Another dose of pain medicine brought her pain back down to a 3 or 4. We will plan to replace her phosphate, magnesium inpatient by IV means. She has very mild hypokalemia which has been addressed with the 2 L of lactated Ringer. Diagnostic Imaging Diagonstic Imaging: Xray Plain Films/CT/US/NM/MRI: chest (1v) Comments No acute cardiopulmonary processes noted. NAME: BRENT CARLSON [facility] REC#: [id number] PT STATUS: REG ER : 1975 PHYSICIAN: CARYL KABA MD ADMIT DATE: 11/29/17/ER Draft Date of Exam:11/29/17 CHEST 1 VIEW, AP/PA ONLY INDICATION: Upper abdominal pain and dyspnea. 0755 hours Comparison is made study of 10/14/2017. FINDINGS: Heart size and pulmonary vascularity are within normal limits, and the lungs are clear, bilaterally. IMPRESSION: Unremarkable chest. Dictated on workstation # [id number] Dict: 11/29/17 0802 Trans: 11/29/17 0805 [id number] Interpreted by: EM KAPLAN MD Electronically signed by: Reviewed: Reviewed by Me Departure Communication (Admissions) Time/Spoke to Admitting Phy: 08:24 Communication Discussed case lab imaging and findings with Dr. Cara Deng the patient is well-known to us she agrees with observing the patient and she will work to get patient towards gastroenterology problem outpatient basis. She says the patient recovered relatively fast last time so observation be more appropriate. She remembers there is a history of drinking she wants an alcohol level. Impression Impression: Primary Impression: Pancreatitis Qualified Codes: K85.90 - Acute pancreatitis without necrosis or infection, unspecified Additional Impressions: Hypomagnesemia Hypokalemia Hypophosphatemia Disposition: ADMITTED INPATIENT Condition: Improved Admissions Decision to Admit Reason: Admit from ER (General) Decision to Admit/Date: Nov 29, 2017 Time/Decision to Admit Time: 08:25 Departure-Patient Inst. Referrals: SRIRAM DENG MD (PCP/Family) Primary Care Physician Copy Copies To 1: MARK NIELSEN TITUS J Nov 29, 2017 07:30
[2017-11-29 07:47] LABS: HEMOGLOBIN 12.9 G/DL (11.5-16.0); MEAN CORPUSCULAR HEMOGLOBIN 30 PG (25-34); WHITE BLOOD COUNT 6.6 10^3/uL (4.3-11.0)
[2017-11-29 07:48] LABS: BASOPHILS % (AUTO) 0 % (0-10); EOSINOPHILS % (AUTO) 1 % (0-10); LYMPHOCYTES # (AUTO) 0.7 X 10^3 (1.0-4.0); LYMPHOCYTES % (AUTO) 10 % (12-44); MONOCYTES # (AUTO) 0.3 X 10^3 (0.0-1.0); MONOCYTES % (AUTO) 4 % (0-12); NEUTROPHILS # (AUTO) 5.6 X 10^3 (1.8-7.8); NEUTROPHILS % (AUTO) 85 % (42-75); PLATELET COUNT 330 10^3/uL (130-400); RED CELL DISTRIBUTION WIDTH 12.6 % (10.0-14.5)
--- NOTE | 2017-11-29 08:05 | Diagnostic Imaging Report ---
INDICATION: Upper abdominal pain and dyspnea. 0755 hours Comparison is made study of 10/14/2017. FINDINGS: Heart size and pulmonary vascularity are within normal limits, and the lungs are clear, bilaterally. IMPRESSION: Unremarkable chest. Dictated by: Dictated on workstation # [id number]
[2017-11-29 08:09] LABS: ALANINE AMINOTRANSFERASE 40 U/L (0-55); ALBUMIN 4.3 GM/DL (3.2-4.5); ALKALINE PHOSPHATASE 61 U/L (40-136); BILIRUBIN,TOTAL 1.1 MG/DL (0.1-1.0); BUN/CREATININE RATIO 11; CALCIUM 10.1 MG/DL (8.5-10.1); CARBON DIOXIDE 19 MMOL/L (21-32); CHLORIDE 102 MMOL/L (98-107); CREATININE SERUM 0.85 MG/DL (0.60-1.30); GFR ESTIMATED > 60; GLUCOSE 110 MG/DL (70-105); LIPASE 81 U/L (8-78); MAGNESIUM 1.5 MG/DL (1.8-2.4); PHOSPHORUS 2.1 MG/DL (2.3-4.7); POTASSIUM 3.5 MMOL/L (3.6-5.0); SODIUM 136 MMOL/L (135-145); TOTAL PROTEIN 7.4 GM/DL (6.4-8.2); TRIGLYCERIDES 153 MG/DL (<150)
--- OUTSIDE RECORDS SUMMARY | 2017-11-29 08:39 | XMS REPORT | Continuity of Care Document ---
Author Author [facility] Organization [facility] Address Unknown Phone Unavailable Allergies Active Description Code Type Severity Reaction Onset Reported/Identified Relationship to Patient Clinical Status Yes iodine [id number] Drug Allergy Severe ANAPHYLAXIS 09/02/2010 Medications There [...] 06/21/2015 JALEN DRAPER DO Ot 568.0 PERITONEAL [id number] 06/21/2015 JALEN DRAPER DO Ot 614.6 FEM [...] OF) LIVER, NOT ELSEWHERE C 01/28/2017 SARAH RIA MD Ot M54.5 LOW BACK PAIN 01/28/2017 [...] SITE NOT SPECIF 03/21/2017 GLORIA, SHANNAN L BREAKER OILER Ot N63 UNSPECIFIED LUMP IN BREAST 04/05/2017 SHANNAN CASTRO BREAKER OILER Ot N63 UNSPECIFIED LUMP IN BREAST 10/15/2017 [...] - 10/15/17 06:06 Lipase 92 U/L 8-78 Complete blood count (CBC) with automated white blood cell (WBC) differential - 11/29/17 07:25 Blood leukocytes automated count (number/volume) 6.6 10*3/uL 4.3-11.0 Blood erythrocytes automated count (number/volume) 4.30 10*6/uL 4.35-5.85 Venous blood hemoglobin measurement (mass/volume) 12.9 g/dL 11.5-16.0 Automated erythrocyte mean corpuscular hemoglobin (mass per erythrocyte) 30 pg 25-34 Automated erythrocyte distribution width ratio 12.6 % 10.0-14.5 Automated blood platelet count (count/volume) 330 10*3/uL 130-400 Automated blood platelet mean volume measurement 8.0 [foz_us] 7.4-10.4 Automated blood neutrophils/100 leukocytes 85 % 42-75 Automated blood lymphocytes/100 leukocytes 10 % 12-44 Blood monocytes/100 leukocytes 4 % 0-12 Automated blood eosinophils/100 leukocytes 1 % 0-10 Automated blood basophils/100 leukocytes 0 % 0-10 Blood neutrophils automated count (number/volume) 5.6 10*3 1.8-7.8 Blood lymphocytes automated count (number/volume) 0.7 10*3 1.0-4.0 Blood monocytes automated count (number/volume) 0.3 10*3 0.0-1.0 Automated eosinophil count 0.0 10*3/uL 0.0-0.3 Automated blood basophil count (count/volume) 0.0 10*3/uL 0.0-0.1 Comprehensive metabolic panel - 11/29/17 07:25 Serum or plasma sodium measurement (moles/volume) 136 mmol/L 135-145 Serum or plasma potassium measurement (moles/volume) 3.5 mmol/L 3.6-5.0 Serum or plasma chloride measurement (moles/volume) 102 mmol/L 98-107 Carbon dioxide 19 mmol/L 21-32 Serum or plasma anion gap determination (moles/volume) 15 mmol/L 5-14 Serum or plasma urea nitrogen measurement (mass/volume) 9 mg/dL 7-18 Serum or plasma creatinine measurement (mass/volume) 0.85 mg/dL 0.60-1.30 Serum or plasma urea nitrogen/creatinine mass ratio 11 NRG Serum or plasma creatinine measurement with calculation of estimated glomerular filtration rate > NRG Serum or plasma glucose measurement (mass/volume) 110 mg/dL 70-105 Serum or plasma calcium measurement (mass/volume) 10.1 mg/dL 8.5-10.1 Serum or plasma total bilirubin measurement (mass/volume) 1.1 mg/dL 0.1-1.0 Serum or plasma alkaline phosphatase measurement (enzymatic activity/volume) 61 U/L 40-136 Serum or plasma aspartate aminotransferase measurement (enzymatic activity/ volume) 39 U/L 5-34 Serum or plasma alanine aminotransferase measurement (enzymatic activity/volume ) 40 U/L 0-55 Serum or plasma protein measurement (mass/volume) 7.4 g/dL 6.4-8.2 Serum or plasma albumin measurement (mass/volume) 4.3 g/dL 3.2-4.5 Serum or plasma phosphate measurement (mass/volume) - 11/29/17 07:25 Serum or plasma phosphate measurement (mass/volume) 2.1 mg/dL 2.3-4.7 Magnesium - 11/29/17 07:25 Magnesium 1.5 mg/dL 1.8-2.4 Serum or plasma triglyceride measurement (mass/volume) - 11/29/17 07:25 Serum or plasma triglyceride measurement (mass/volume) 153 mg/dL <150 Lipase - 11/29/17 07:25 Lipase 81 U/L 8-78 Blood lactic acid measurement (moles/volume) - 11/29/17 07:39 Blood lactic acid measurement (moles/volume) 1.66 mmol/L 0.50-2.00 Encounters ACCT No. Visit Date/Time Discharge Status Pt. Type Provider Facility Loc./Unit Complaint [id number] 11/08/2017 06:57:00 11/08/2017 23:59:59 CLS Outpatient SRIRAM PEREZ MD [facility] RAD K85.00 IDIOPATHIC ACUTE PANCREATITIS W/O INFECTION [id number] 10/14/2017 13:30:00 10/15/2017 14:21:00 DIS Inpatient SRIRAM PEREZ MD [facility] 4TH PANCREATITIS [id number] 03/15/2017 08:12:00 03/15/2017 23:59:59 CLS Outpatient SHANNAN CASTRO [facility] RAD N63 [id number] 01/28/2017 08:28:00 01/28/2017 11:24:00 DIS Emergency SARAH RAI MD [facility] ER LEFT SIDED LOWER BACK PAIN [id number] 03/23/2016 07:56:00 03/23/2016 23:59:59 CLS Outpatient MICHAEL COOPER MD [facility] LAB JOINT PAIN,PSORIASIS ARTHRITIS [id number] 03/20/2016 12:34:00 03/20/2016 23:59:59 CLS Outpatient MICHAEL COOPER MD [facility] RAD HAND WRIST PAIN, PSORIATIC ARTHRITIS [id number] 06/20/2015 06:00:00 06/21/2015 11:05:00 DIS Outpatient JALEN DRAPER DO [facility] SDC ABNORMAL UTERINE BLEEDING; ANEMIA [id number] 06/11/2015 13:06:00 06/11/2015 23:59:59 CLS Outpatient JALEN DRAPER DO [facility] PREOP ABNORMAL UTERINE BLEEDING; ANEMIA [id number] 04/24/2015 10:49:00 04/24/2015 23:59:59 CLS Outpatient JALEN DRAPER DO [facility] RAD PELVIC PAIN, [id number] 03/20/2014 10:30:00 03/20/2014 23:59:59 CLS Outpatient [id number] 08/21/2013 18:13:00 08/22/2013 11:35:00 DIS Inpatient [id number] 08/12/2013 22:02:00 08/13/2013 06:35:00 DIS Outpatient [id number] 05/30/2013 09:52:00 05/30/2013 15:20:00 DIS Outpatient [id number] 03/29/2013 16:10:00 03/29/2013 18:05:00 DIS Emergency [id number] 11/29/2017 07:51:00 Document Registration
[2017-11-29 09:19] LABS: BILIRUBIN,URINE NEGATIVE (NEGATIVE); CLARITY,URINE CLEAR; COLOR,URINE YELLOW; GLUCOSE, URINE (UA) NEGATIVE (NEGATIVE); KETONES,URINE 1+ (NEGATIVE); LEUKOCYTE ESTERASE ,URINE NEGATIVE (NEGATIVE); NITRITE,URINE NEGATIVE (NEGATIVE); PH,URINE 8 (5-9); PROTEIN,URINE NEGATIVE (NEGATIVE); UROBILINOGEN,URINE NORMAL (NORMAL)
[2017-11-29 09:36] LABS: BACTERIA,URINE FEW /HPF; SQUAMOUS EPITHELIAL CELL,UR 0-2 /HPF
[2017-11-29] MEDS ORDERED: NS IV 1000 ML 1,000 ML ONE (09:41)
[2017-11-29 09:45] VITALS: BP 129/71
[2017-11-29] MEDS ORDERED: LACTATED RINGERS 1,000 ML IV SCH (09:45)
[2017-11-29] MEDS ORDERED: ONDANSETRON 4 MG/2 ML (SDV) Z0FRAN IV PRN (09:45)
[2017-11-29] MEDS ORDERED: MAGNESIUM 1 GM/D5W 100 ML IVPB IV NR (09:45)
[2017-11-29] MEDS ORDERED: SODIUM PHOSPHATE MM IV NR ×2 (10:00)
[2017-11-29] MEDS ORDERED: NS IV NR ×2 (10:00)
[2017-11-29] MEDS ORDERED: ATOR10TA66 PO (10:05)
[2017-11-29 10:27] LABS: HEMATOCRIT 40 % (35-52); MEAN CORPUSCULAR HGB CONC 32 G/DL (32-36); MEAN CORPUSCULAR VOLUME 92 FL (80-99)
[2017-11-29 12:00] VITALS: BP 117/69
--- NOTE | 2017-11-29 12:23 | History & Physicial (CHS) ---
HPI History of Present Illness: 42YO WOMAN presented to hospital today with complaints of abdominal pain starting yesterday. Patient had an episode of acute pancreatitis in September of last year. She states that the pain in the past 24h is just like that last episode. Last time, she had had a rum and coke in the preceeding 24h. She has not had any alcohol since that time. She starred having abdominal pain yesterday morning despite not having eaten breakfast. She tried to rest through the day. She drank about 4 oz of price yuriy last night before going to bed. She woke up with the pain intensifying. She is nauseated but has not vomited. No fever. Mildly loose stools, no blood or pus. On review of records, CT scan during admission in September showed dilated CBT to 1.5cm, increased from the previous exam. An US ordered by me in October showed fat stranding in the liver but no ductal dilitation. Source: patient Exam Limitations: no limitations Date seen by provider: Nov 29, 2017 Time Seen by Provider: 09:30 Attending Physician Sriram Deng MD PCP Sriram Deng MD Consult Date of Admission Nov 29, 2017 at 8:28 am Home Medications Home Medications Reviewed patient Home Medication Reconciliation Form Allergies Coded Allergies: iodine (Unverified Allergy, Severe, ANAPHYLAXIS, 09/02/10) SWELLING OF THROAT [id number]-Hqctkz Hx Patient Social History Alcohol Use: Denies Use Recreational Drug Use: No Smoking Status: Never a Smoker 2nd Hand Smoke Exposure: No Recent Foreign Travel: No Contact w/other who traveled: No Recent Hopitalizations: No Recent Infectious Disease Expo: No Physical Abuse Screen: No Sexual Abuse: No Immunizations Up To Date Tetanus Booster (TDap): Less than 5yrs Date of Influenza Vaccine: Sep 22, 2017 Family Medical History Significant Family History: Hypertension Family History: Cataracts 19 MOTHER Congenital heart disease G8 SISTER (BOTH SISTERS HAVE MIRTAL VALVE PROLAPSE) Hypertension 19 FATHER Thyroid disease 19 MOTHER No Family History of: Coronary thrombosis Review of Systems (CHC) Constitutional: no symptoms reported Psychiatric/Neurological: See HPI All Other Systems Reviewed Negative Unless Noted: Yes Reviewed Test Results Reviewed Test Results Lab Laboratory Tests Test 11/29/17 07:25 11/29/17 07:39 11/29/17 09:13 Range/Units White Blood Count 6.6 4.3-11.0 10^3/uL Red Blood Count 4.30 L 4.35-5.85 10^6/uL Hemoglobin 12.9 11.5-16.0 G/DL Hematocrit 40 35-52 % Mean Corpuscular Volume 92 80-99 FL Mean Corpuscular Hemoglobin 30 25-34 PG Mean Corpuscular Hemoglobin Concent 32 32-36 G/DL Red Cell Distribution Width 12.6 10.0-14.5 % Platelet Count 330 130-400 10^3/uL Mean Platelet Volume 8.0 7.4-10.4 FL Neutrophils (%) (Auto) 85 H 42-75 % Lymphocytes (%) (Auto) 10 L 12-44 % Monocytes (%) (Auto) 4 0-12 % Eosinophils (%) (Auto) 1 0-10 % Basophils (%) (Auto) 0 0-10 % Neutrophils # (Auto) 5.6 1.8-7.8 X 10^3 Lymphocytes # (Auto) 0.7 L 1.0-4.0 X 10^3 Monocytes # (Auto) 0.3 0.0-1.0 X 10^3 Eosinophils # (Auto) 0.0 0.0-0.3 10^3/uL Basophils # (Auto) 0.0 0.0-0.1 10^3/uL Sodium Level 136 135-145 MMOL/L Potassium Level 3.5 L 3.6-5.0 MMOL/L Chloride Level 102 98-107 MMOL/L Carbon Dioxide Level 19 L 21-32 MMOL/L Anion Gap 15 H 5-14 MMOL/L Blood Urea Nitrogen 9 7-18 MG/DL Creatinine 0.85 0.60-1.30 MG/DL Estimat Glomerular Filtration Rate > 60 BUN/Creatinine Ratio 11 Glucose Level 110 H 70-105 MG/DL Calcium Level 10.1 8.5-10.1 MG/DL Phosphorus Level 2.1 L 2.3-4.7 MG/DL Magnesium Level 1.5 L 1.8-2.4 MG/DL Total Bilirubin 1.1 H 0.1-1.0 MG/DL Aspartate Amino Transf (AST/SGOT) 39 H 5-34 U/L Alanine Aminotransferase (ALT/SGPT) 40 0-55 U/L Alkaline Phosphatase 61 40-136 U/L Total Protein 7.4 6.4-8.2 GM/DL Albumin 4.3 3.2-4.5 GM/DL Triglycerides Level 153 H <150 MG/DL Lipase 81 H 8-78 U/L Serum Alcohol < 10 <10 MG/DL Lactic Acid Level 1.66 0.50-2.00 MMOL/L Urine Color YELLOW Urine Clarity CLEAR Urine pH 8 5-9 Urine Specific [place] 1.010 L 1.016-1.022 Urine Protein NEGATIVE NEGATIVE Urine Glucose (UA) NEGATIVE NEGATIVE Urine Ketones 1+ H NEGATIVE Urine Nitrite NEGATIVE NEGATIVE Urine Bilirubin NEGATIVE NEGATIVE Urine Urobilinogen NORMAL NORMAL MG/DL Urine Leukocyte Esterase NEGATIVE NEGATIVE Urine RBC (Auto) NEGATIVE NEGATIVE Urine RBC NONE /HPF Urine WBC NONE /HPF Urine Squamous Epithelial Cells 0-2 /HPF Urine Crystals NONE /LPF Urine Bacteria FEW H /HPF Urine Casts NONE /LPF Urine Mucus NEGATIVE /LPF Urine Culture Indicated NO Physical Exam-(CHC) Physical Exam Vital Signs VS - Last 72 Hours, by Label 11/29/17 11/29/17 11/29/17 07:17 08:56 09:45 Temp 97.8 100.0 Pulse 97 89 91 Resp 22 18 22 B/P (MAP) 129/71 (90) 129/71 (90) Pulse Ox 100 98 94 O2 Delivery Room Air Room Air Capillary Refill : Less Than 3 Seconds General Appearance: WD/WN, no apparent distress HEENT: PERRL/EOMI, normal ENT inspection, pharynx normal Neck: non-tender, full range of motion, supple, normal inspection Respiratory: chest non-tender, lungs clear, normal breath sounds, no respiratory distress, no accessory muscle use Cardiovascular: regular rate, rhythm, no edema, no gallop, no JVD, no murmur Gastrointestinal: normal bowel sounds, soft, no organomegaly, no pulsatile mass , other (TTP epigastric region and radiating to the right) Extremities: normal range of motion, non-tender, normal inspection, no pedal edema, no calf tenderness, normal capillary refill Neurologic/Psychiatric: immigration manager II-XII nml as tested, no motor/sensory deficits, alert, normal mood/affect, oriented x 3 Skin: normal color, warm/dry Clinical Quality Measures DVT/VTE Risk/Contraindication: Risk Factor Score Per Nursin RFS Level Per Nursing on Admit: 2=Moderate Copy Copies To 1: FARNAZ CARDONA CHECK WRITER SALESPERSON Assessment/Plan Assessment/Plan Admission Dx ACUTE PANCREATITIS NONALCOHOLIC FATTY LIVER DISEASE MORBID OBESITY HYPERTRIGLYCERIDEMIA HYPOTHYROIDISM Plan ACUTE PANCREATITIS ADM: NPO and bowel rest today. NS at 150ml/h. will do clears tomorrow if she is feeling better. Her TGL are down from 299 a few months ago to 153 on lipitor 10mg. may need to add fenofibrate. still not sure this is what is precipitating the pancreatitis. will order HIDA scan to see if there is a retained stone. consider MRCP if that is negative. NONALCOHOLIC FATTY LIVER DISEASE ADM: pt will need to focus on losing weight in the near future, at least 5% of her body weight. may benefit from appt with rehabilitation program manager to discuss low cholesterol/fat diet. MORBID OBESITY ADM: complicating risk for the pancreatitis and NAFLD. also likely to have metabolic syndrome. HYPERTRIGLYCERIDEMIA ADM: continue lipitor for now. may add fibrate. HYPOTHYROIDISM ADM: no acute issues. continue levothyroxine DVT PROPH: SCDs, early ambulation FULL CODE SRIRAM DENG MD Nov 29, 2017 12:23 pm
[2017-11-29] MEDS ORDERED: CATHETER FLUSH 10 ML SYR IV PRN (15:30)
[2017-11-29] MEDS: NS IV 1000 ML 1,000 ML IV SCH ×3 (15:45→22:15)
--- NOTE | 2017-11-29 16:05 | Diagnostic Imaging Report ---
HEPATOBILIARY SCAN DATE: November 29, 2017. INDICATION: 42-year-old female, history of recurrent acute pancreatitis. PROCEDURE: 5.0 mCi of Tc-99m choletec was administered intravenously and serial anterior planar images over the liver and upper abdomen were obtained. FINDINGS: There is clearance of background activity by the liver indicating hepatocyte function. There is radiotracer excretion into the bile ducts with passage of radiotracer into the small bowel. There is a provided history of cholecystectomy. There is no identified abnormal extravasation of radiotracer. IMPRESSION: 1. Passage of radiotracer into the small bowel excluding complete common bile duct obstruction. This study does not exclude a common bile duct stone. 2. Clearance of background activity by the liver indicating hepatocyte function. Dictated by: Dictated on workstation # [id number]
[2017-11-29] MEDS: fentaNYL INJECTION 100 MCG/2 ML AMP IV PRN ×4 (16:07→23:36)
[2017-11-29 16:10] VITALS: BP 133/77
[2017-11-29 19:05] VITALS: BP 121/73
[2017-11-30] VITALS: BP 131/65
[2017-11-30] MEDS: NS IV 1000 ML 1,000 ML IV SCH ×3 (03:20→09:04)
[2017-11-30] MEDS ORDERED: LEVOTHYROXINE 100 MCG (LEVOTHROID) TAB PO SCH ×2 (06:30→09:34)
[2017-11-30 07:14] LABS: BASOPHILS % (AUTO) 0 % (0-10); EOSINOPHILS # (AUTO) 0.1 10^3/uL (0.0-0.3); EOSINOPHILS % (AUTO) 2 % (0-10); HEMATOCRIT 31 % (35-52); HEMOGLOBIN 10.7 G/DL (11.5-16.0); LYMPHOCYTES # (AUTO) 0.7 X 10^3 (1.0-4.0); LYMPHOCYTES % (AUTO) 22 % (12-44); MEAN CORPUSCULAR HEMOGLOBIN 31 PG (25-34); MEAN CORPUSCULAR HGB CONC 35 G/DL (32-36); MEAN CORPUSCULAR VOLUME 89 FL (80-99); MEAN PLATELET VOLUME 8.6 FL (7.4-10.4); MONOCYTES # (AUTO) 0.3 X 10^3 (0.0-1.0); MONOCYTES % (AUTO) 9 % (0-12); NEUTROPHILS # (AUTO) 2.1 X 10^3 (1.8-7.8); NEUTROPHILS % (AUTO) 67 % (42-75); PLATELET COUNT 233 10^3/uL (130-400); RED BLOOD COUNT 3.46 10^6/uL (4.35-5.85); RED CELL DISTRIBUTION WIDTH 11.9 % (10.0-14.5); WHITE BLOOD COUNT 3.2 10^3/uL (4.3-11.0)
[2017-11-30 07:38] LABS: BUN/CREATININE RATIO 10; CALCIUM 8.1 MG/DL (8.5-10.1); CARBON DIOXIDE 22 MMOL/L (21-32); CHLORIDE 108 MMOL/L (98-107); CREATININE SERUM 0.72 MG/DL (0.60-1.30); GFR ESTIMATED > 60; GLUCOSE 77 MG/DL (70-105); LIPASE 19 U/L (8-78); MAGNESIUM 1.5 MG/DL (1.8-2.4); POTASSIUM 3.4 MMOL/L (3.6-5.0); SODIUM 139 MMOL/L (135-145)
[2017-11-30 07:48] VITALS: BP 109/69
[2017-11-30] MEDS ORDERED: PATIENT MAY USE OWN MEDS, ALL MC SCH (08:45)
[2017-11-30] MEDS ORDERED: ATORVASTATIN 10 MG (LIPITOR) TABLET PO SCH ×2 (09:00→09:36)
[2017-11-30] MEDS ORDERED: NALT1TAB PO (12:15)
--- NOTE | 2017-11-30 12:17 | Discharge Instructions ---
Discharge On license of [facility] Discharge Medications New, Converted or Re-Newed RX: Transmitted to Pharmacy New Medications: Naltrexone HCl/Bupropion HCl (Contrave ER 8-90 mg Tablet) 1 Each Tablet.er 1 EACH PO BID, #60 TAB 1 Refill Continued Medications: Atorvastatin Calcium (Atorvastatin Calcium) 10 Mg Tablet 10 MG PO DAILY, TAB Levothyroxine Sodium (Levothyroxine Sodium) 100 Mcg Tablet 100 MCG PO DAILY, TAB Patient Instructions Goal/Follow Up Appt: 1. follow up with Ricky Vasquez as scheduled 2. Follow up with Dr Knutson regarding further testing for the recurrent pancreatitis 3. Follow up with [facility] Patient Instructions: Please focus on a low fat/cholesterol diet. You have fat stranding in your liver as well as recurrent pancreatitis. Losing weight can improve both of these conditions. Return to [facility] For: fever, intense abdominal pain Activity & Diet Discharge Diet: Low Fat/Low Cholesterol Activity as Tolerated: Yes Copy Copies To 1: SRIRAM SALAZAR APRN, MD Nov 30, 2017 12:17 pm
--- NOTE | 2017-11-30 12:21 | Discharge Summary ---
Diagnosis/Chief Complaint Date of Admission Nov 29, 2017 at 8:28 am Date of Discharge Chief Complaint/HPI Chief Complaint/HPI 42YO WOMAN presented to hospital today with complaints of abdominal pain starting yesterday. Patient had an episode of acute pancreatitis in September of last year. She states that the pain in the past 24h is just like that last episode. Last time, she had had a rum and coke in the preceeding 24h. She has not had any alcohol since that time. She starred having abdominal pain yesterday morning despite not having eaten breakfast. She tried to rest through the day. She drank about 4 oz of price yuriy last night before going to bed. She woke up with the pain intensifying. She is nauseated but has not vomited. No fever. Mildly loose stools, no blood or pus. On review of records, CT scan during admission in September showed dilated CBT to 1.5cm, increased from the previous exam. An US ordered by me in October showed fat stranding in the liver but no ductal dilitation. Discharge Summary-Simple/Stand Consultations Discharge Physical Examination Allergies: Coded Allergies: iodine (Unverified Allergy, Severe, ANAPHYLAXIS, 09/02/10) SWELLING OF THROAT Vitals & I&Os Vital Sign - Last 12Hours Date Time Temp Pulse Resp B/P (MAP) Pulse Ox O2 Delivery O2 Flow Rate FiO2 11/30/17 09:23 Room Air 11/30/17 07:48 98.0 75 18 109/69 (82) 98 Intake and Output 11/30/17 00:00 Intake Total 2205 ml Output Total 900 ml Balance 1305 ml Hospital Course See final discharge diagnosis. Discharge Instructions to patient/family Please see electronic discharge instructions given to patient. Discharge Medications Reviewed and agree with Discharge Medication list on patient's Discharge Instruction sheet Clinical Quality Measures DVT/VTE Risk/Contraindication: Risk Factor Score Per Nursin RFS Level Per Nursing on Admit: 2=Moderate SRIRAM DENG MD Nov 30, 2017 12:21 pm
[2017-11-30 14:00] VITALS: BP 109/69
== END 2017-11-30 12:15 | disposition home or self-care (01) ==
LOC: EDUNIT# 07:17 → ER 07:18 → 4TH 08:28 → UNDOADMOB 08:28 → 4TH 09:30 → UNDODISOB 11-30 14:00
PROVIDERS: ADMIT Pediatrics; ATTEND Pediatrics
DX: K85.90 Acute pancreatitis without necrosis or infection, unspecified (principal); E03.9 Hypothyroidism, unspecified; K76.0 Fatty (change of) liver, not elsewhere classified; E78.1 Pure hyperglyceridemia; E66.01 Morbid (severe) obesity due to excess calories; Z68.38 Body mass index [BMI] 38.0-38.9, adult
CPT/HCPCS: 36415; 71045; 78226; 80048; 80053; 80320; 81000; 83605; 83690; 83735; 84100; 84478; 85025; 96361; 96374; 96375; 96376; G0378

== ENCOUNTER → 2017-12-10 | Outpatient (CLI) | payer MEDICAID ==
[~2017-12-10] MED LIST changes: +ATOR10TA66 PO; +NALT1TAB PO
--- NOTE | 2017-12-10 12:09 | Diagnostic Imaging Report ---
PROCEDURE: MR imaging cholangiography-pancreatography. TECHNIQUE: Multiplanar imaging of the abdomen was performed on a 1.5 Leelee magnet without contrast. 3D reconstructions were made for the MRCP. INDICATION: History of pancreatitis and prior cholecystectomy. Patient currently complains of midabdominal pain. FINDINGS: No discrete liver mass is identified. The liver demonstrates homogeneous signal intensity. The gallbladder is surgically absent. No intrahepatic biliary ductal dilatation is seen. MRCP images demonstrate mild prominence of the extrahepatic bile duct, likely owing to post cholecystectomy. No filling defect is seen to suggest retained stone. The extrahepatic bile duct does taper and measures approximately 8 mm in diameter. The pancreatic duct is normal in caliber. The pancreas is unremarkable. The spleen is unremarkable. There appears to be a small accessory spleen anteriorly. No adrenal mass is seen. Visualized kidneys are unremarkable. There is no ascites. The visualized small bowel loops are unremarkable. IMPRESSION: Unremarkable MRI of the abdomen utilizing the MRCP protocol. There is no evidence of choledocholithiasis, status post cholecystectomy. Dictated by: Dictated on workstation # [id number]
== END ==
LOC: RAD 10:50
PROVIDERS: ATTEND Surgery
DX: R10.9 Unspecified abdominal pain (principal); Z87.19 Personal history of other diseases of the digestive system; Z90.49 Acquired absence of other specified parts of digestive tract
CPT/HCPCS: 74181

== ENCOUNTER → 2019-06-30 | Outpatient (CLI) | payer MEDICAID ==
--- NOTE | 2019-06-30 19:29 | Diagnostic Imaging Report ---
INDICATION: Pain in the upper half of the right breast. CORRELATION is made with prior mammogram from 03/15/2017. TECHNIQUE: 2D and 3D bilateral diagnostic mammography was performed with CAD. FINDINGS: Scattered fibroglandular densities are identified bilaterally. Previously noted ovoid circumscribed nodule in the medial right breast is again noted. This may be slightly larger on today's study. This was shown to represent a sebaceous cyst. No other suspicious abnormality is seen. Overall parenchyma is stable. No suspicious calcifications are seen. The axillae are unremarkable. IMPRESSION: BI-RADS 0 Slight increase in size of right breast nodule medially consistent with enlarging sebaceous cyst. Further evaluation of this with ultrasound is recommended. In addition, sonographic interrogation of the area of pain in the upper right breast is recommended and will be performed today. ACR BI-RADS Category 0: Incomplete. (Needs additional imaging evaluation). Result letter will be mailed to the patient. Note: At least 10% of breast cancer is not imaged by mammography. Dictated by: Dictated on workstation # [id number]
--- NOTE | 2019-06-30 19:35 | Diagnostic Imaging Report ---
INDICATION: Right breast densities. COMPARISON: Correlation is made with diagnostic mammogram earlier the same day as well as prior right breast ultrasound from 03/15/2017 and diagnostic mammogram from 03/15/2017. FINDINGS: Sonographic interrogation of the inner right breast was performed. Previously noted sebaceous cyst just below the skin surface is again seen measuring approximately 9 mm x 5 mm x 10 mm. It is slightly larger than prior exam. In addition, at the 2 o'clock location 4 cm from the nipple there is a circumscribed, macrolobulated hypoechoic solid nodule measuring 1.4 x 0.7 x 1.2 cm. This was not definitely seen on prior ultrasound. It does likely account for the larger density noted mammographically. This density does appear to be slightly larger when compared with prior mammogram. 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 No other masses are seen. IMPRESSION: BI-RADS category 4 1. Slight increase in size of subcutaneous cyst at the 2 o'clock location of the right breast 5 cm from the nipple, consistent with a sebaceous cyst. 2. Solid, macrolobulated nodule 2 o'clock location 4 cm from the nipple, corresponding to the dominant density noted mammographically which does appear to be slightly larger when compared with mammogram 2 years earlier. 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 After a conversation with the patient, the patient elected to undergo biopsy. This lesion would be amenable to ultrasound-guided core biopsy. ACR BI-RADS Category 4: Suspicious abnormality. Result letter will be mailed to the patient. Note: At least 10% of breast cancer is not imaged by mammography. Dictated by: Dictated on workstation # [id number]
== END ==
LOC: RAD 12:46
PROVIDERS: ATTEND Nurse Practitioner Primary Care
DX: N60.01 Solitary cyst of right breast (principal); N63.10 Unspecified lump in the right breast, unspecified quadrant
CPT/HCPCS: 77066

== ENCOUNTER → 2019-07-07 | Outpatient (CLI) | payer MEDICAID ==
[~2019-07-07] VITALS: Ht 162.6 cm; Wt 97.1 kg
[~2019-07-07] MED LIST changes: +LIDOCAINE 1% INJ 20 ML 20 ML VIAL INJ ONE
--- NOTE | 2019-07-07 19:10 | Diagnostic Imaging Report ---
INDICATION: Right breast mass. Patient presents for ultrasound-guided biopsy. Patient was brought to the procedure room, placed on the table in the supine position. Ultrasound imaging of the right breast was performed to evaluate appropriate entry site. Right breast was then prepped and draped in usual sterile fashion. Small amount of 1% lidocaine was utilized for local anesthesia. A total of 3 core biopsies were obtained of the hypoechoic mass at the 2 o'clock location of the right breast, 4 cm from the nipple using a 14-gauge Achieve needle. A marker clip was then deployed. Hemostasis was obtained using manual compression. Patient tolerated the procedure well and was sent for post procedure mammogram in satisfactory condition. IMPRESSION: Successful ultrasound-guided core biopsy of the circumscribed hypoechoic mass right breast 2 o'clock location. Pathology results are currently pending. Dictated by: Dictated on workstation # [id number]
--- NOTE | 2019-07-07 19:20 | Diagnostic Imaging Report ---
INDICATION: Right breast mass, status post ultrasound-guided core biopsy. Unilateral right 2-D CC and ML views of the right breast were obtained post biopsy. Marker clip is noted adjacent to the mass in the medial right breast. Marker is along the medial and inferior margin of the mass. IMPRESSION: Marker is located adjacent to the mass recently biopsied with ultrasound. Dictated by: Dictated on workstation # [id number]
== END ==
LOC: RAD 10:13
PROVIDERS: ATTEND Nurse Practitioner Primary Care
DX: N63.10 Unspecified lump in the right breast, unspecified quadrant (principal); R92.8 Other abnormal and inconclusive findings on diagnostic imaging of breast
CPT/HCPCS: 19083

== ENCOUNTER 2022-06-03 00:14 | Emergency (ER) | payer MEDICAID ==
[~2022-06-03 00:14] MED LIST changes: -LIDOCAINE 1% INJ 20 ML 20 ML VIAL INJ ONE
[2022-06-03] MEDS ORDERED: LACTATED RINGERS 1,000 ML IV ONE (00:45)
[2022-06-03] MEDS ORDERED: ACETAMINOPHEN 500 MG TAB (TYLENOL) PO PRN (00:45)
[2022-06-03 00:59] LABS: BASOPHILS % (AUTO) 0 % (0-10); EOSINOPHILS # (AUTO) 0.2 10^3/uL (0.0-0.3); EOSINOPHILS % (AUTO) 3 % (0-10); HEMATOCRIT 41 % (35-52); HEMOGLOBIN 13.8 g/dL (11.5-16.0); LYMPHOCYTES # (AUTO) 1.9 10^3/uL (1.0-4.0); LYMPHOCYTES % (AUTO) 26 % (12-44); MEAN CORPUSCULAR HEMOGLOBIN 30 pg (25-34); MEAN CORPUSCULAR HGB CONC 34 g/dL (32-36); MEAN CORPUSCULAR VOLUME 88 fL (80-99); MEAN PLATELET VOLUME 8.8 fL (9.0-12.2); MONOCYTES # (AUTO) 0.8 10^3/uL (0.0-1.0); MONOCYTES % (AUTO) 11 % (0-12); NEUTROPHILS # (AUTO) 4.5 10^3/uL (1.8-7.8); NEUTROPHILS % (AUTO) 60 % (42-75); PLATELET COUNT 380 10^3/uL (130-400); WHITE BLOOD COUNT 7.5 10^3/uL (4.3-11.0)
--- NOTE | 2022-06-03 01:11 | ED General ---
General Chief Complaint: COVID19 Suspect/Confirmed Stated Complaint: SOB Source of Information: Patient History of Present Illness Date Seen by Provider: Jun 03, 2022 Time Seen by Provider: 00:27 Initial Comments PT ARRIVES VIA POV FROM HOME STATE SHE HAS BEEN SICK SINCE Wednesday05/31/22 WITH COUGH AND CONGESTION AND FEVER UP TO 101 TOOK TYLENOL ON WEDNESDAY AND WEDNESDAY, BUT NOT TODAY HAS HAD NAUSEA, VOMITING SINCE WEDNESDAY--VOMITING MOSTLY SALIVA/CLEAR MUCOUS--TOOK A ZOFRAN EARLIER TODAY NO HEMATEMESIS OR COFFEE GROUND EMESIS BEGAN HAVING DIARRHEA THIS AM--HAD 5 EPISODES, THEN TOOK OVER THE COUNTER MEDICATION TO STOP DIARRHEA NO BLACK/BLOODY/TARRY STOOLS FEELS A LITTLE SHORT OF BREATH HAS HAD LOSS OF TASTE SINCE WEDNESDAY NO HEADACHE NO BODY ACHES PT BEGAN HAVING EPIGASTRIC PAIN 1 HOUR PRIOR TO ARRIVAL STATES SHE HAS HAD IDIOPATHIC PANCREATITIS AT LEAST TWICE BEFORE, AND THIS PAIN FEELS SIMILAR PT HAS HAD: -CHOLECYSTECTOMY -APPENDECTOMY -HYSTERECTOMY--DOES NOT KNOW IF SHE STILL HAS HER OVARIES - X 4 PT IS NOT DIABETIC HAS THYROID DISEASE, BUT HAS NOT TAKEN THYROID MEDICATION RECENTLY--STATES SHE RAN OUT AND DID NOT GET IT REFILLED. PT ALSO STATES A COUPLE OF WEEKS AGO, SHE SAW DR. DURAN FOR A SWOLLEN LYMPH NODE IN HER LEFT LOWER NECK AREA WAS PUT ON AN ANTIBIOTIC AND SHE THOUGHT IT WAS GONE STATES SINCE WEDNESDAY, THE AREA HAS SWELLED UP AGAIN, IS A LITTLE SORE, BUT NOT EXTREMELY PAINFUL. PT IS NON-SMOKER, NON-DRINKER, NEVER USED DRUGS. PT HAD COVID-19 VACCINE X 2--LAST ONE WAS OVER 1 YEAR AGO. PT WORKS AT [employer]--NO MASK REQUIREMENTS. LIVES AT HOME WITH CHILDREN, NONE OF THEM ARE ILL. PCP: DR. DURAN Allergies and Home Medications Allergies Coded Allergies: iodine (Unverified Allergy, Severe, ANAPHYLAXIS, 09/02/10) SWELLING OF THROAT Patient Home Medication List Atorvastatin Calcium (Atorvastatin Calcium) 10 Mg Tablet, 10 MG PO DAILY, (Reported) Entered as Reported by: JEFE LYNN on 11/29/17 1005 Ketorolac Tromethamine (Ketorolac Tromethamine) 10 Mg Tablet, 10 MG PO Q6H Prescribed by: URMILA JAQUEZ on 06/03/22 0500 Levothyroxine Sodium (Levothyroxine Sodium) 100 Mcg Tablet, 100 MCG PO DAILY, (Reported) Entered as Reported by: CINDY BHAT on 10/14/17 1540 Naltrexone HCl/Bupropion HCl (Contrave ER 8-90 mg Tablet) 1 Each Tablet.er, 1 EACH PO BID Prescribed by: SRIRAM DENG on 11/30/17 1215 Ondansetron (Ondansetron Odt) 8 Mg Tab.rapdis, 8 MG PO Q6H Prescribed by: URMILA JAQUEZ on 06/03/22 0500 Pantoprazole Sodium (Protonix) 40 Mg Tablet.dr, 40 MG PO DAILY Prescribed by: URMILA JAQUEZ on 06/03/22 0500 Review of Systems Review of Systems Constitutional: see HPI, fever EENTM: see HPI, nose congestion; No throat pain Respiratory: see HPI, cough, short of breath Cardiovascular: no symptoms reported; No chest pain Gastrointestinal: see HPI, abdominal pain, diarrhea, loss of appetite, nausea, vomiting Genitourinary: no symptoms reported Musculoskeletal: no symptoms reported Skin: no symptoms reported; No rash Psychiatric/Neurological: No Symptoms Reported; Denies Headache Hematologic/Lymphatic: See HPI, Swollen Glands Immunological/Allergic: no symptoms reported Past Dtnrjdk-Tcrvlt-Jjpznc Hx Patient Social History Tobacco Use?: No Substance use?: No Alcohol Use?: No Immunizations Up To Date Tetanus Booster (TDap): Less than 5yrs Seasonal Allergies Seasonal Allergies: No Past Medical History Surgeries: Yes (2 C-SECTIONS, T&A, APPY, CYSTS FROM ARMS, WISDOM TEETH;HYST/OVARIES INTACT) Adenoidectomy, Appendectomy, Section, Gallbladder, Hysterectomy, Tonsillectomy Respiratory: No Currently Using CPAP: No Currently Using BIPAP: No Cardiac: Yes High Cholesterol Neurological: Yes Reproductive Disorders: Yes (ANEMIA FROM ABNORMAL UTERINE BLEEDING) Female Reproductive Disorders: Menstrual Problems 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 Sexually Transmitted Disease: No HIV/AIDS: No Genitourinary: Yes Bladder Infection, UTI-Chronic Gastrointestinal: Yes Pancreatitis, Ulcer, Gall Bladder Disease Musculoskeletal: No Endocrine: Yes Hypothyroidsim HEENT: No Loss of Vision: Denies Hearing Impairment: Denies Cancer: No Psychosocial: No Integumentary: Yes (RIGHT ARM) Eczema, Psoriasis Blood Disorders: No Adverse Reaction/Blood Tranf: No (HAS HAD BLOOD TRANSFUSION WITH NO PROBLEMS) Family Medical History Cataracts 19 MOTHER Congenital heart disease G8 SISTER (BOTH SISTERS HAVE MIRTAL VALVE PROLAPSE) Hypertension 19 FATHER Thyroid disease 19 MOTHER No Family History of: Coronary thrombosis Hypertension Physical Exam Vital Signs Vital Signs - First Documented 06/03/22 00:28 Temp 38.0 Pulse 128 Resp 20 B/P (MAP) 159/105 (123) Pulse Ox 100 O2 Delivery Room Air Capillary Refill : Height, Weight, BMI Height: 5'4.00" Weight: 214lbs. 0.0oz. 97.570082vy; 36.7 BMI Method:Stated General Appearance: Obese, Other (LOOKS UNCOMFORTABLE, DIAPHORETIC. HOLDING EPIGASTRIC AREA, MILDLY TACHYPNEIC) HEENT: PERRL/EOMI, TMs Normal, Normal ENT Inspection, Pharynx Normal, Moist Mucous Membranes Neck: Full Range of Motion, Supple, Lymphadenopathy (L) (LARGE LEFT SUPRACLAVICULAR NODE AT LEAST 3 CM IN DIAMETER BY PALPATION, MILDLY TENDER. NO OVERLYING SKIN CHANGES. ) Respiratory: Normal Breath Sounds, No Accessory Muscle Use, No Respiratory Distress, Other (MILDLY TACHYPNEIC) Cardiovascular: No Edema, No JVD, No Murmur, Normal Peripheral Pulses, Tachycardia Gastrointestinal: Soft; No Distended; Guarding; No Mass, No Rebound; Tenderness (EPIGASTRIC AND LEFT UPPER QUADRANT TENDERNESS. 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 Norm as Tested Skin: Normal Color, Warm/Dry (VERY WARM, MOIST AND DIAPHORETIC), Damp, Diaphoresis Focused Exam Sepsis Stage: Ruled Out Reason for ruling out sepsis: DOES NOT MEET CRITERIA Possible Source: Pulmonary (0300) Lactate Level 06/03/22 00:29: Lactic Acid Level 2.17*H Time of Focused Exam: 03:00 Respiratory: Normal Breath Sounds, No Accessory Muscle Use, No Respiratory Distress Cardiovascular: Regular Rate, Rhythm Capillary Refill: Less Than 3 Seconds Skin: normal color, warm/dry Lactic Acid Level Laboratory Tests Test 06/03/22 00:29 Lactic Acid Level 2.17 MMOL/L (0.50-2.00) *H Within 3hrs of presentation: Admin fluids, Blood cultures prior to ABX's, Focus exam, Lactate level, Other (NO ANTIBIOTICS PT HAS COVID AND NO SIGNS OF BACTERIAL INFECTION) Progress/Results/Core Measures Suspected Sepsis SIRS Temperature: Pulse: Respiratory Rate: Laboratory Tests 06/03/22 00:29: White Blood Count 7.5 Blood Pressure / Mean: 06/03/22 00:29: Lactic Acid Level 2.17*H Laboratory Tests 06/03/22 00:29: Creatinine 1.09, INR Comment 0.9, Platelet Count 380, Total Bilirubin 0.4 Results/Orders Lab Results Laboratory Tests Test 06/03/22 00:29 06/03/22 01:01 06/03/22 02:35 Range/Units White Blood Count 7.5 4.3-11.0 10^3/uL Red Blood Count 4.64 3.80-5.11 10^6/uL Hemoglobin 13.8 11.5-16.0 g/dL Hematocrit 41 35-52 % Mean Corpuscular Volume 88 80-99 fL Mean Corpuscular Hemoglobin 30 25-34 pg Mean Corpuscular Hemoglobin Concent 34 32-36 g/dL Red Cell Distribution Width 12.5 10.0-14.5 % Platelet Count 380 130-400 10^3/uL Mean Platelet Volume 8.8 L 9.0-12.2 fL Immature Granulocyte % (Auto) 0 % Neutrophils (%) (Auto) 60 42-75 % Lymphocytes (%) (Auto) 26 12-44 % Monocytes (%) (Auto) 11 0-12 % Eosinophils (%) (Auto) 3 0-10 % Basophils (%) (Auto) 0 0-10 % Neutrophils # (Auto) 4.5 1.8-7.8 10^3/uL Lymphocytes # (Auto) 1.9 1.0-4.0 10^3/uL Monocytes # (Auto) 0.8 0.0-1.0 10^3/uL Eosinophils # (Auto) 0.2 0.0-0.3 10^3/uL Basophils # (Auto) 0.0 0.0-0.1 10^3/uL Immature Granulocyte # (Auto) 0.0 0.0-0.1 10^3/uL Erythrocyte Sedimentation Rate 3 0-20 MM/HR Prothrombin Time 12.5 12.2-14.7 SEC INR Comment 0.9 0.8-1.4 Activated Partial Thromboplast Time 29 24-35 SEC Sodium Level 136 135-145 MMOL/L Potassium Level 3.7 3.6-5.0 MMOL/L Chloride Level 102 98-107 MMOL/L Carbon Dioxide Level 21 21-32 MMOL/L Anion Gap 13 5-14 MMOL/L Blood Urea Nitrogen 11 7-18 MG/DL Creatinine 1.09 0.60-1.30 MG/DL Estimat Glomerular Filtration Rate 64 BUN/Creatinine Ratio 10 Glucose Level 99 70-105 MG/DL Lactic Acid Level 2.17 *H 0.50-2.00 MMOL/L Calcium Level 10.1 8.5-10.1 MG/DL Corrected Calcium 8.5-10.1 MG/DL Magnesium Level 2.2 1.6-2.4 MG/DL Total Bilirubin 0.4 0.1-1.0 MG/DL Aspartate Amino Transf (AST/SGOT) 25 5-34 U/L Alanine Aminotransferase (ALT/SGPT) 29 0-55 U/L Alkaline Phosphatase 68 40-136 U/L C-Reactive Protein High Sensitivity 1.82 H 0.00-0.50 MG/DL Total Protein 8.6 H 6.4-8.2 GM/DL Albumin 5.0 H 3.2-4.5 GM/DL Amylase Level 68 25-125 U/L Lipase 17 8-78 U/L Procalcitonin 0.05 <0.10 NG/ML Serum Test, Qualitative NEGATIVE NEGATIVE Influenza Type A (RT-PCR) Not Detected Not Detecte Influenza Type B (RT-PCR) Not Detected Not Detecte SARS-CoV-2 RNA (RT-PCR) Detected H Not Detecte Monoscreen NEGATIVE NEGATIVE Urine Color YELLOW Urine Clarity CLEAR Urine pH 6.0 5-9 Urine Specific Becker 1.020 1.016-1.022 Urine Protein NEGATIVE NEGATIVE Urine Glucose (UA) NEGATIVE NEGATIVE Urine Ketones NEGATIVE NEGATIVE Urine Nitrite NEGATIVE NEGATIVE Urine Bilirubin NEGATIVE NEGATIVE Urine Urobilinogen 0.2 < = 1.0 MG/DL Urine Leukocyte Esterase NEGATIVE NEGATIVE Urine RBC (Auto) NEGATIVE NEGATIVE Urine RBC NONE /HPF Urine WBC NONE /HPF Urine Squamous Epithelial Cells 2-5 /HPF Urine Crystals NONE /LPF Urine Bacteria TRACE /HPF Urine Casts NONE /LPF Urine Mucus NEGATIVE /LPF Urine Culture Indicated CULTURE PENDING My Orders Orders - URMILA JAQUEZ DO Covid 19 Inhouse Test (06/03/22 00:26) Influenza A And B By Pcr (06/03/22:) Isolation Central Supply Req (06/03/22) Ed Iv/Invasive Line Start (06/03/22:31) Monitor-Rhythm Ecg Trace Only (06/03/22:) Amylase (06/03/22) Cbc With Automated Diff (06/03/22) Comprehensive Metabolic Panel (06/03/22) Hs C Reactive Protein (06/03/22) Hcg,Qualitative Serum (06/03/22) Lactic Acid Analyzer (06/03/22) Lipase (06/03/22) Magnesium (06/03/22) Procalcitonin (Pct) (06/03/22) Ua Culture If Indicated (06/03/22) Blood Culture (06/03/22) Erythrocyte Sedimentation Rate (06/03/22) Chest 1 View, Ap/Pa Only (06/03/22:) Ed Iv/Invasive Line Start (06/03/22:) Lactated Ringers (Lr 1000 Ml Iv Solution (06/03/22 00:45) Urine Culture (06/03/22:) Protime With Inr (06/03/22:) Partial Thromboplastin Time (06/03/22:) Acetaminophen Tablet (Tylenol Tablet) (06/03/22 00:45) Vital Signs Adult Sepsis Patie Q15M (06/03/22 00:31) Remove Rings In Anticipation O (06/03/22 00:31) Monotest (06/03/22 00:58) Ct Chest/Abdomen/Pelvis Wo (06/03/22:) Pantoprazole Injection (Protonix Injecti (06/03/22 03:45) Ketorolac Injection (Toradol Injection) (06/03/22 03:45) Rx-Nirmatrelvir/Ritonavir(Eua) (Rx-Paxlo (06/03/22 05:00) Medications Given in ED Current Medications Medications Dose Ordered Sig/Wiley Route Start Time Stop Time Status Last Admin Dose Admin Acetaminophen 1,000 mg ONCE PRN PO 06/03/22 00:45 06/03/22 00:45 DC 06/03/22 00:44 1,000 MG Ketorolac Tromethamine 30 mg ONCE ONCE IVP 06/03/22 03:45 06/03/22 03:46 DC 06/03/22 03:53 30 MG Lactated Ringer's 1,000 ml @ 0 mls/hr Q0M ONCE IV 06/03/22 00:45 06/03/22 00:46 DC 06/03/22 00:43 999 MLS/HR Pantoprazole 40 mg ONCE ONCE IV 06/03/22 03:45 06/03/22 03:46 DC 06/03/22 03:53 40 MG Vital Signs/I&O 06/03/22 06/03/22 06/03/22 06/03/22 00:28 00:28 00:44 04:09 Temp 38.0 38.0 37.0 Pulse 128 91 Resp 20 16 B/P (MAP) 159/105 (123) 124/91 Pulse Ox 100 97 O2 Delivery Room Air Room Air Room Air 06/03/22 05:08 Temp 37.0 Pulse 99 Resp 16 B/P (MAP) 123/100 Pulse Ox 99 O2 Delivery Room Air Capillary Refill : Progress Note : Progress Note PLACED IN ISOLATION ROOM PPE WORN AT ALL TIMES COVID, FLU AND MONO TESTING DONE. SEPSIS PROTOCOL INITIATED GIVEN: -IV FLUIDS -TYLENOL FOR FEVER -TORADOL -PROTONIX MARKED DELAY IN OBTAINING CT REPORT--OVER 2 HOURS 0418--CALLING [facility]. THEY WILL EXPEDITE GETTING A READING. RECEIVED REPORT AT 0452 PT IS FEELING MUCH BETTER AT DISMISSAL RESPIRATIONS EVEN AND UNLABORED HEART RATE AND TEMP DOWN NO LONGER SWEATING NO LONGER DYSPNEIC/TACHYPNEIC NO LONGER HOLDING UPPER ABDOMEN OR HAVING ANY ABDOMINAL PAIN AND NAUSEA IS GONE. O2 SATS 100% ON ROOM AIR THROUGHOUT ENTIRE ER STAY NO HYPOXIA NO COUGH Diagnostic Imaging Comments CT ABDOMEN/PELVIS--PER [facility] VIA FAX AT 0452 NO ACUTE PROCESS Reviewed: Reviewed by Me Departure Impression Primary Impression: COVID-19 virus infection Additional Impressions: Epigastric abdominal pain LEFT SUPRACLAVICULAR ADENOPATHY Disposition: 01 HOME, SELF-CARE Condition: Stable Departure-Patient Inst. Decision time for Depature: 04:53 Referrals: ALLEN DURAN DO (PCP/Family) Primary Care Physician Patient Instructions: COVID-19 Home Care/Discharge, Nirmatrelvir and Ritonavir FDA Fact Sheet Add. Discharge Instructions: CONTINUE OVER THE COUNTER MEDICATIONS FOR COUGH AND CONGESTION TYLENOL NEEDED FOR PAIN OR FEVER RETURN TO ER IF YOUR SYMPTOMS WORSEN QUARANTINE FOR 10 DA[address] FOLLOW UP WITH DR. DURAN IN 2-3 WEEKS FOR FURTHER EVALUATION OF ENLARGED LYMPH NODE All discharge instructions reviewed with patient and/or family. Voiced understanding. Scripts Ketorolac Tromethamine (Ketorolac Tromethamine) 10 Mg Tablet 10 MG PO Q6H for Pain, #15 TAB Prov: URMILA JAQUEZ DO 06/03/22 Pantoprazole Sodium (Protonix) 40 Mg Tablet.dr 40 MG PO DAILY, #15 TAB Prov: URMILA JAQUEZ DO 06/03/22 Ondansetron (Ondansetron Odt) 8 Mg Tab.rapdis 8 MG PO Q6H, #10 TAB Prov: URMILA JAQUEZ DO 06/03/22 URMILA JAQUEZ DO Jun 03, 2022 01:10
[2022-06-03 01:13] LABS: CHLORIDE 102 MMOL/L (98-107); POTASSIUM 3.7 MMOL/L (3.6-5.0); SODIUM 136 MMOL/L (135-145)
[2022-06-03 01:14] LABS: CALCIUM 10.1 MG/DL (8.5-10.1)
[2022-06-03 01:15] LABS: AMYLASE 68 U/L (25-125); INR 0.9 (0.8-1.4); PROTHROMBIN TIME PATIENT 12.5 SEC (12.2-14.7)
[2022-06-03 01:16] LABS: GLUCOSE 99 MG/DL (70-105); TOTAL PROTEIN 8.6 GM/DL (6.4-8.2)
[2022-06-03 01:17] LABS: BILIRUBIN,TOTAL 0.4 MG/DL (0.1-1.0); CARBON DIOXIDE 21 MMOL/L (21-32)
[2022-06-03 01:19] LABS: ALKALINE PHOSPHATASE 68 U/L (40-136); CREATININE SERUM 1.09 MG/DL (0.60-1.30); GFR ESTIMATED 64
[2022-06-03 01:21] LABS: BUN/CREATININE RATIO 10
[2022-06-03 01:22] LABS: ALANINE AMINOTRANSFERASE 29 U/L (0-55); MAGNESIUM 2.2 MG/DL (1.6-2.4)
[2022-06-03 01:23] LABS: ERYTHROCYTE SEDIMENTATION RATE 3 MM/HR (0-20); LIPASE 17 U/L (8-78)
[2022-06-03 02:45] LABS: BILIRUBIN,URINE NEGATIVE (NEGATIVE); CLARITY,URINE CLEAR; COLOR,URINE YELLOW; GLUCOSE, URINE (UA) NEGATIVE (NEGATIVE); KETONES,URINE NEGATIVE (NEGATIVE); LEUKOCYTE ESTERASE ,URINE NEGATIVE (NEGATIVE); NITRITE,URINE NEGATIVE (NEGATIVE); PROTEIN,URINE NEGATIVE (NEGATIVE)
[2022-06-03 03:00] LABS: BACTERIA,URINE TRACE /HPF
[2022-06-03] MEDS ORDERED: KETOROLAC 30 MG/ML VIAL IVP ONE (03:45)
[2022-06-03] MEDS ORDERED: PANTOPRAZOLE 40 MG (PROTONIX) VIAL IV ONE (03:45)
[2022-06-03] MEDS ORDERED: ONDA8TAB13 PO (05:00)
[2022-06-03] MEDS ORDERED: PANT40TA2 PO (05:00)
[2022-06-03] MEDS ORDERED: RX-NIRMATRELVIR/RITONAVIR (PAXLOVID) #30 TABS PO SCH (05:00)
[2022-06-03] MEDS ORDERED: KETO10TA PO (05:00)
[2022-06-03] MEDS ORDERED: RX-NIRMATRELVIR/RITONAVIR (PAXLOVID) #30 TABS PO ONE (05:05)
[2022-06-03 05:08] VITALS: BP 123/100
--- NOTE | 2022-06-03 06:21 | Diagnostic Imaging Report ---
INDICATION: Fever and cough. TIME OF EXAM: 2:01 AM Correlation is made prior chest 11/29/2017. FINDINGS: The heart size is normal. The pulmonary vascularity is unremarkable. The lungs are clear. No infiltrate, effusion or pneumothorax is detected. IMPRESSION: No acute cardiopulmonary process is detected. Dictated by: Dictated on workstation # [id number]
--- NOTE | 2022-06-03 06:49 | Diagnostic Imaging Report ---
PROCEDURE: CT chest, abdomen, and pelvis without contrast. TECHNIQUE: Multiple contiguous axial images were obtained through the chest, abdomen, and pelvis without the use of intravenous contrast. Auto Exposure Controls were utilized during the CT exam to meet ALARA standards for radiation dose reduction. INDICATION: Cough and fever. Patient is Covid-[address] CHEST: Heart size is normal. No pericardial or pleural fluid is detected. No axillary lymphadenopathy is identified. No definite mediastinal or hilar lymphadenopathy is detected. The lungs are clear. No infiltrates are seen. No nodular mass is detected. CT abdomen and pelvis: No focal liver mass is detected. Gallbladder surgically absent. There is no biliary ductal dilatation. Pancreas and spleen are unremarkable. No adrenal mass is identified. No renal calculi or hydronephrosis is identified. Aorta is nonaneurysmal. There is a small fat-containing umbilical hernia. Bowel loops are normal caliber. There is no obstruction. No free fluid or fluid collection is seen. The bladder is unremarkable. Uterus appears to be surgically absent. No inflammatory changes are seen. IMPRESSION: Essentially unremarkable noncontrast CT of the chest, abdomen and pelvis apart from a small fat-containing umbilical hernia. No acute feature is detected. Dictated by: Dictated on workstation # [id number]
== END 2022-06-03 05:21 | disposition home or self-care (01) ==
LOC: EDUNIT# 00:14 → ER 00:16
DX: U07.1 COVID-19 (principal); R10.13 Epigastric pain; R59.0 Localized enlarged lymph nodes; E66.9 Obesity, unspecified; Z90.49 Acquired absence of other specified parts of digestive tract; Z68.36 Body mass index [BMI] 36.0-36.9, adult
CPT/HCPCS: 36415; 71045; 71250; 74176; 80053; 81000; 82150; 83605; 83690; 83735; 84145; 84703; 85025; 85610; 85652; 85730; 86141; 86308; 87040; 87088; 87636